=== PATIENT | male | born 1950 | race Caucasian/White ===

== ENCOUNTER 2017-07-27 09:59 | Outpatient (CLI) | payer OTHER, MEDICARE | END 2017-07-27 10:00 | disposition home or self-care (01) | LOC: SC 09:59 | PROVIDERS: ATTEND Internal Medicine Pulmonary Disease | DX: G47.10 Hypersomnia, unspecified (principal); G47.8 Other sleep disorders; R06.83 Snoring | CPT/HCPCS: 99203; 99212 ==

== ENCOUNTER 2019-10-06 08:57 | Outpatient (CLI) | payer MEDICARE, OTHER ==
--- NOTE | 2019-10-07 13:03 | Ultrasound Report ---
Reason: EDEMA OF LOWER EXTREMITY Procedure Date: 10/06/2019 Accession Number: [id number] / [id number] Procedure: US - Duplex Ext Veins Bilateral CPT Code: Final Report FULL RESULT: EXAM: BILATERAL LOWER EXTREMITY VENOUS ULTRASOUND EXAM DATE: 10/06/2019 10:35 AM. CLINICAL HISTORY: Increasing EDEMA OF LOWER EXTREMITY. COMPARISON: None. TECHNIQUE: Real-time sonographic vascular imaging was performed by the pull over machine operator through the lower extremities utilizing both color-flow and Doppler spectral analysis. Multiple contact center representative static images were saved for review. FINDINGS: Right: Common Femoral Vein (CFV): Normal. CFV-GSV Junction: Normal. Profunda Femoral Vein (PFV): Normal. Femoral Vein (FV) Prox: Normal. Femoral Vein (FV) Mid: Normal. Femoral Vein (FV) Dist: Normal. Popliteal Vein: Normal. Posterior Tibial Veins: Normal. Peroneal Veins: Normal. Left: Common Femoral Vein (CFV): Normal. CFV-GSV Junction: Normal. Profunda Femoral Vein (PFV): Normal. Femoral Vein (FV) Prox: Normal. Femoral Vein (FV) Mid: Normal. Femoral Vein (FV) Dist: Normal. Popliteal Vein: Normal. Posterior Tibial Veins: Normal. Peroneal Veins: Normal. Other: None. IMPRESSION: No evidence for deep venous thrombosis bilaterally. RADIA
== END 2019-10-06 08:58 | disposition home or self-care (01) ==
LOC: DI 08:57
PROVIDERS: ATTEND Nurse Practitioner Family
DX: R60.0 Localized edema (principal)
CPT/HCPCS: 93970

== ENCOUNTER 2020-04-11 12:08 | Outpatient (CLI) | payer MEDICARE, OTHER | END 2020-04-11 12:09 | disposition EMS.NT | LOC: EMS 12:08 | PROVIDERS: ATTEND Surgery | DX: M54.5 Low back pain (principal) ==

== ENCOUNTER 2020-10-20 19:15 | Outpatient (CLI) | payer MEDICARE, OTHER | END 2020-10-20 19:16 | disposition EMS.NT | LOC: EMS 19:15 | PROVIDERS: ATTEND Surgery | DX: R29.898 Other symptoms and signs involving the musculoskeletal system (principal) ==

== ENCOUNTER 2021-01-15 15:49 | Outpatient (CLI) | payer MEDICARE, OTHER ==
--- NOTE | 2021-01-15 16:11 | Ultrasound Report ---
PROCEDURE: Pelvic Limited or F/U INDICATIONS: INTRA-ABD AND PELVIC SWELLING, MASS, AND LUMP TECHNIQUE: Real-time transabdominal scanning was performed of the pelvic organs, with image documentation. COMPARISON: None. FINDINGS: There is a spontaneously reducible bowel containing right inguinal hernia with the neck of the hernia measuring 1.7 cm in diameter. No abnormal fluid collections. No suspicious mass lesions. N o adenopathy. IMPRESSION: Spontaneously reducible, bowel-containing right inguinal hernia with neck of the defect measuring 1.7 cm in diameter. Reviewed by: Manjeet Martins MD on 01/15/2021 4:10 PM PDT Approved by: Manjeet Martins MD on 01/15/2021 4:10 PM PDT Station ID: [id number]
== END 2021-01-15 15:50 | disposition home or self-care (01) ==
LOC: DI 15:49
PROVIDERS: ATTEND Nurse Practitioner Family
DX: K40.90 Unilateral inguinal hernia, without obstruction or gangrene, not specified as recurrent (principal)

== ENCOUNTER 2021-01-22 12:32 | Emergency (ER) | payer MEDICARE, OTHER ==
[2021-01-22 13:19] LABS: BASOPHILS % (AUTO) 0.4 %; EOSINOPHILS # (AUTO) 0.1 10^3/uL (0.0-0.7); EOSINOPHILS % (AUTO) 2.3 %; HCT - HEMATOCRIT 37.9 % (42.0-52.0); HGB - HEMOGLOBIN 10.8 g/dL (14.0-18.0); LYMPHOCYTES # (AUTO) 0.8 10^3/uL (1.5-3.5); LYMPHOCYTES % (AUTO) 16.5 %; MEAN CORPUSCULAR HEMOGLOBIN 22.6 pg (27.0-31.0); MEAN CORPUSCULAR HGB CONC 28.5 g/dL (32.0-36.0); MEAN CORPUSCULAR VOLUME 79.3 fL (80.0-94.0); MEAN PLATELET VOLUME 10.4 fL (7.4-11.4); MONOCYTES # (AUTO) 0.5 10^3/uL (0.0-1.0); MONOCYTES % (AUTO) 10.3 %; NEUTROPHILS # (AUTO) 3.4 10^3/uL (1.5-6.6); NEUTROPHILS % (AUTO) 70.3 %; PLT - PLATELET COUNT 233 10^3/uL (130-450); RED BLOOD COUNT 4.78 10^6/uL (4.70-6.10); RED CELL DISTRIBUTION WIDTH 18.5 % (12.0-15.0); WHITE BLOOD COUNT 4.8 x10^3/uL (4.8-10.8)
[2021-01-22 13:33] VITALS: BP 139/66
[2021-01-22 13:33] LABS: ALBUMIN 3.9 g/dL (3.2-5.5); ALBUMIN/GLOBULIN RATIO 1.2 (1.0-2.2); ALKALINE PHOSPHATASE 89 IU/L (42-121); ALT ALANINE AMINOTRANSFERASE < 10 IU/L (10-60); AST ASPARTATE AMINOTRANSFERASE 23 IU/L (10-42); BILIRUBIN,TOTAL 0.6 mg/dL (0.2-1.0); BUN - BLOOD UREA NITROGEN 34 mg/dL (6-20); CALCIUM 9.7 mg/dL (8.5-10.3); CARBON DIOXIDE - CO2 24 mmol/L (21-32); CHLORIDE 104 mmol/L (101-111); GFR - MDRD 74 (>89); GLUCOSE 103 mg/dL (70-100); LIPASE 38 U/L (22-51); SODIUM 138 mmol/L (135-145); TOTAL PROTEIN 7.1 g/dL (6.7-8.2)
[2021-01-22] MEDS ORDERED: HYDROmorphone 1 MG/ML CARPUJECT IVP STA (13:55)
--- NOTE | 2021-01-22 13:56 | ED Physician Documentation ---
History of Present Illness - Stated complaint Stated Complaint: GROIN PX - Chief complaint Chief Complaint: Abd Pain - Additonal information Additional information: 70-year-old male comes to the emergency department with worsening right inguinal pain. He reports that for about 3 weeks he has had a hard lump in his groin he did see his primary care doctor last week and had a pelvic ultrasound completed which did show bowel containing right inguinal hernia. He is scheduled to see Dr. Trevizo on the of this month. However over the last 24 hours he has had an increase in the swelling and pain in the groin. No fevers. He is not anti coagulated. He denies vomiting black or bloody stools. Review of Systems Constitutional: denies: Fever, Chills Eyes: reports: Reviewed and negative Ears: reports: Reviewed and negative Nose: reports: Reviewed and negative Throat: reports: Reviewed and negative Cardiac: reports: Reviewed and negative Respiratory: reports: Reviewed and negative GI: reports: Abdominal Pain : reports: Other (right inguinal hernia). denies: Dysuria, Frequency Skin: reports: Reviewed and negative PD PAST MEDICAL HISTORY - Past Medical History Past Medical History: Yes Cardiovascular: Hypertension Neuro: Parkinson's Musculoskeletal: Other - Past Surgical History Past Surgical History: Yes Ortho: Other - Present Medications Home Medications: Ambulatory Orders Medication Instructions Recorded Confirmed Baclofen [Lioresal] 10 mg PO TID 01/22/21 01/22/21 Carbidopa/Levodopa 25/100 [Sinemet 1 each PO Q4HR 01/22/21 01/22/21 25 mg/100 mg] Cyclobenzaprine [Flexeril] 10 mg PO TID PRN 01/22/21 01/22/21 Escitalopram [Lexapro] 10 mg PO DAILY 01/22/21 01/22/21 HYDROcod/ACETAM 5/325 [Lawrence 5/325] 1 tab PO BID PRN #10 tablet 01/22/21 Lisinopril [Zestril] 20 mg PO DAILY 01/22/21 01/22/21 Pramipexole Di-HCl [Mirapex ER] 0.75 mg PO DAILY 01/22/21 01/22/21 Pravastatin Sodium [Pravachol] 20 mg PO DAILY 01/22/21 01/22/21 polyethylene glycoL 3350 [Miralax] 17 gm PO DAILY PRN #1 bottle 01/22/21 - Allergies Allergies/Adverse Reactions: Allergies Allergy/AdvReac Type Severity Reaction Status Date / Time Sulfa (Sulfonamide Allergy Rash Verified 01/22/21 12:50 Antibiotics) - Social History Does the pt smoke?: No Smoking Status: Never smoker Does the pt drink ETOH?: No Does the pt have substance abuse?: No - Immunizations Immunizations are current?: Yes PD ED PE EXPANDED - General General: Alert, No acute distress - Cardiac Cardiac: Regular Rate, Regular Rhythm, Radial strong equal, Femoral strong equal, Pedal strong equal, Cap refill < 2 sec - Respiratory Respiratory: Clear to ausultation aram. No: Distress, Labored - Abdomen Abdomen: Normal Bowel sounds. No: Tender to palpation - Male Male : Circumcised, Tenderness, Other (Right inguinal hernia; unable to be reduced ? incarcerated) - Neuro Neuro: Alert and Oriented X 3, CNII-XII intact Results - Vitals Vitals: Vital Signs - 24 hr 01/22/21 01/22/21 12:51 13:27 Temperature 36.5 C 36.5 C Heart Rate 81 81 Respiratory 18 18 Rate Blood Pressure 129/66 139/66 H O2 Saturation 95 95 Oxygen O2 Source Room air - Labs Labs: Laboratory Tests 01/22/21 01/22/21 13:12 13:12 WBC 4.8 RBC 4.78 Hgb 10.8 L Hct 37.9 L MCV 79.3 L MCH 22.6 L MCHC 28.5 L RDW 18.5 H Plt Count 233 MPV 10.4 Neut # (Auto) 3.4 Lymph # (Auto) 0.8 L Caswell # (Auto) 0.5 Eos # (Auto) 0.1 Baso # (Auto) 0.0 Absolute Nucleated RBC 0.00 Nucleated RBC % 0.0 Sodium 138 Potassium 4.0 Chloride 104 Carbon Dioxide 24 Anion Gap 10.0 BUN 34 H Creatinine 1.0 Estimated GFR (MDRD) 74 L Glucose 103 H Calcium 9.7 Total Bilirubin 0.6 AST 23 ALT < 10 L Alkaline Phosphatase 89 Total Protein 7.1 Albumin 3.9 Globulin 3.2 Albumin/Globulin Ratio 1.2 Lipase 38 - Rads (name of study) pelvic US Radiology: Final report received (Reducible right inguinal hernia.) PD MEDICAL DECISION MAKING - ED course Complexity details: reviewed results, re-evaluated patient, considered differential, d/w patient, d/w marketing sales consultant (Joseline) ED course: 70-year-old male with a known right inguinal hernia comes to the emergency department for evaluation of increasing right groin pain. On exam he did have a palpable inguinal and hernia that I was only able to partially reduce. Therefore I did order a pelvic ultrasound. However at the time the ultrasound was in the room the hernia had fully reduced. Screening labs showed no leukocytosis or fever. This case was briefly discussed with on-call surgeon Dr. Trevizo. He is stable for discharge home and to continue follow-up with her in office next week. She recommends no heavy lifting straining or bearing down. I will write a prescription for a limited amount of hydrocodone as well as MiraLAX. Emergent return precautions were discussed for concerns of incarceration and strangulation. Departure - Departure Disposition: 01 Home, Self Care Clinical Impression: Right inguinal hernia Condition: Stable Record reviewed to determine appropriate education?: Yes Instructions: ED Hernia Inguinal Follow-Up: Davis Trevizo MD [Provider Admit Priv/Credential] - Prescriptions: polyethylene glycoL 3350 [Miralax] 17 gm PO DAILY PRN #1 bottle PRN Reason: Constipation HYDROcod/ACETAM 5/325 [Lawrence 5/325] 1 tab PO BID PRN #10 tablet PRN Reason: Pain Comments: Walt you are seen in the emergency department today for right inguinal hernia. We were able to reduce it. You to have an appointment with Dr. Rodriguez next week on the . Do not miss this appointment. Over the next week it is important that you avoid any straining, lifting heavier than 2 pounds, squatting or bearing down. All of these actions can cause the hernia to come out. If at any point the hernia comes out and you are not able to get it to go back and as we were then please return to the ER for a second look. I have prescribed a limited amount of hydrocodone for pain that is to be used very sparingly. I have also prescribed some MiraLAX to help make sure that you do not have constipation.
--- NOTE | 2021-01-22 14:44 | Ultrasound Report ---
PROCEDURE: Pelvic Male INDICATIONS: ? incarcerated inguinal hernia TECHNIQUE: Interrogation of right inguinal region with high megahertz linear transducer with and with out Valsalva COMPARISON: 01/15/2021 FINDINGS: Again noted is a reducible hernia containing bowel. The hernia defect measures approximately 1.7 cm i n diameter. IMPRESSION: Reducible right inguinal hernia containing bowel. Reviewed by: Dae Whitley MD on 01/22/2021 2:42 PM PDT Approved by: Dae Whitley MD on 01/22/2021 2:42 PM PDT Station ID: [id number]
== END 2021-01-22 14:59 | disposition home or self-care (01) ==
LOC: ED 12:32
DX: K44.9 Diaphragmatic hernia without obstruction or gangrene (principal); I10 Essential (primary) hypertension
CPT/HCPCS: 36415; 76857; 80053; 83690; 85025; 96374; 99284; J1170

== ENCOUNTER 2021-02-08 14:05 | Outpatient (CLI) | payer MEDICARE | END 2021-02-08 14:06 | disposition home or self-care (01) | LOC: COV 14:05 | PROVIDERS: ATTEND Surgery | DX: Z01.812 Encounter for preprocedural laboratory examination (principal); K40.90 Unilateral inguinal hernia, without obstruction or gangrene, not specified as recurrent; Z20.822 Contact with and (suspected) exposure to COVID-19 ==

== ENCOUNTER 2021-02-11 07:58 | Day surgery (SDC) | payer MEDICARE, OTHER ==
[~2021-02-11 07:58] MED LIST: ceFAZolin 2 GM/50 ML 2 GM/50 ML BAG IV ONE
[2021-02-11] MEDS ORDERED: fentaNYL 100 MCG/2 ML VIAL IVP PRN (08:28)
[2021-02-11] MEDS ORDERED: MORPHINE 2 MG/ML CARPUJECT IVP PRN (08:28)
[2021-02-11] MEDS ORDERED: ONDANSETRON 4 MG/2 ML VIAL IVP PRN ×2 (08:28→10:16)
[2021-02-11] MEDS ORDERED: ATROPINE ABBOJECT 1 MG/10 ML SYRINGE IVP PRN (08:28)
[2021-02-11] MEDS ORDERED: HYDROmorphone 0.5 MG/0.5 ML SYRINGE IVP PRN (08:28)
[2021-02-11] MEDS ORDERED: NALOXONE 0.4 MG/ML VIAL IVP PRN (08:28)
[2021-02-11] MEDS ORDERED: ePHEDrine 50 MG/ML VIAL IVP PRN (08:28)
[2021-02-11] MEDS ORDERED: LACTATED RINGERS 1,000 ML IV ONE ×2 (08:53→10:23)
[2021-02-11] MEDS ORDERED: LACTATED RINGERS 1,000 ML IV SCH (09:00)
--- NOTE | 2021-02-11 09:00 | ANESTHESIA ---
Pre-Anesthesia VS, & Labs - Diagnosis r inguinal hernia - Procedure r inguinal hernia repair Vital Signs: Temp Pulse Resp BP Pulse Ox 36.2 C L 70 16 111/59 L 99 02/11/21 08:18 02/11/21 08:18 02/11/21 08:18 02/11/21 08:18 02/11/21 08:18 Height: 6 ft Weight (kg): 214 kg Body Mass Index: 64.0 BMI Classification: Morbidly Obese - NPO >8 hours Home Medications and Allergies Home Medications: Ambulatory Orders Aspirin EC [Ecotrin] 81 mg PO DAILY 02/07/21 Carbidopa/Levodopa 25/100 [Sinemet 25 mg/100 mg] 1 tab PO ONCE 02/07/21 Cyclobenzaprine HCl 5 - 10 mg PO Q8HR PRN 02/07/21 Lisinopril [Zestril] 20 mg PO DAILY 02/07/21 Metoprolol Tartrate [Lopressor] 25 mg PO BID 02/07/21 Pramipexole Di-HCl [Mirapex] 0.75 mg PO ONCE 02/07/21 Pravastatin Sodium [Pravachol] 20 mg PO DAILY 02/07/21 Active Medications Atropine Sulfate (Atropine Abboject 1 Mg/10 Ml Syringe) 0.5 mg IVP Q5M PRN PRN Reason: Bradycardia Stop: 02/12/21 08:28 Ephedrine Sulfate (Ephedrine 50 Mg/Ml Vial) 10 mg IVP Q5M PRN PRN Reason: HYPOTENSION Stop: 02/12/21 08:28 Fentanyl (Fentanyl 100 Mcg/2 Ml Vial) 25 - 50 mcg IVP Q5M PRN PRN Reason: BREAKTHROUGH PAIN (2nd Choice) Stop: 02/12/21 08:28 Hydromorphone HCl (Hydromorphone 0.5 Mg/0.5 Ml Syringe) 0.2 - 0.6 mg IVP Q5M PRN PRN Reason: PAIN (First Choice) Stop: 02/12/21 08:28 Lactated Ringer's (Lr) 1,000 mls @ 100 mls/hr IV .Q10H BALA Stop: 02/11/21 18:59 Morphine Sulfate (Morphine 2 Mg/Ml Carpuject) 2 - 4 mg IVP Q5M PRN PRN Reason: PAIN (3rd Choice) Stop: 02/12/21 08:28 Naloxone HCl (Naloxone 0.4 Mg/Ml Vial) 0.1 mg IVP Q2M PRN PRN Reason: RESP RATE <8 Stop: 02/12/21 08:28 Ondansetron HCl (Ondansetron 4 Mg/2 Ml Vial) 4 mg IVP ONCE PRN PRN Reason: N/V (First Choice) Stop: 02/12/21 08:28 Baclofen [Lioresal] 10 mg PO TID 01/22/21 Carbidopa/Levodopa 25/100 [Sinemet 25 mg/100 mg] 1 each PO Q4HR 01/22/21 Cyclobenzaprine [Flexeril] 10 mg PO TID PRN 01/22/21 Escitalopram [Lexapro] 10 mg PO DAILY 01/22/21 Lisinopril [Zestril] 20 mg PO DAILY 01/22/21 Pramipexole Di-HCl [Mirapex ER] 0.75 mg PO DAILY 01/22/21 Pravastatin Sodium [Pravachol] 20 mg PO DAILY 01/22/21 Aspirin EC [Ecotrin] 81 mg PO DAILY 02/07/21 Carbidopa/Levodopa 25/100 [Sinemet 25 mg/100 mg] 1 tab PO ONCE 02/07/21 Cyclobenzaprine HCl 5 - 10 mg PO Q8HR PRN 02/07/21 Lisinopril [Zestril] 20 mg PO DAILY 02/07/21 Metoprolol Tartrate [Lopressor] 25 mg PO BID 02/07/21 Pramipexole Di-HCl [Mirapex] 0.75 mg PO ONCE 02/07/21 Pravastatin Sodium [Pravachol] 20 mg PO DAILY 02/07/21 Allergies/Adverse Reactions: Allergies Allergy/AdvReac Type Severity Reaction Status Date / Time Sulfa (Sulfonamide Allergy Rash Verified 02/08/21 08:06 Antibiotics) Anes History & Medical History - Anesthetic History Anesthesia Complications: reports: No previous complications Family history of Anesthesia Complications: Denies Family history of Malignant Hyperthermia: Denies - Medical History Cardiovascular: reports: High cholesterol, Hypertension, Murmur Pulmonary: reports: Shortness of breath Gastrointestinal: reports: None Urinary: reports: Other Neuro: reports: Parkinson's Musculoskeletal: reports: Osteoarthritis, Other Endocrine/Autoimmune: reports: None Skin: reports: None Smoking Status: Never smoker - Surgical History General: reports: Colonoscopy Eyes Ears Nose Throat (EENT): reports: Tonsil/Adenoidectomy Cardiothoracic: reports: Other Orthopedic: reports: Shoulder arthroplasty, Spine surgery, Other Exam General: Alert, Oriented x3, Cooperative Dental: WNL Mouth Openin Fingerbreadth Neck Mobility: Normal Mallampati classification: II Thyromental Distance: 4-6 cm Respiratory: Lungs clear Cardiovascular: Regular rate Abdomen: Normal bowel sounds Extremities: No clubbing Mental/Cognitive Status: Alert/Oriented X3 Cognitive Status: Within normal limits Plan Anesthesia Type: General, Total IV Consent for Procedure(s) Verified and Reviewed: Yes Code Status: Attempt Resuscitation ASA classification: 3-Severe systemic disease Is this case an emergency?: No
[2021-02-11] MEDS ORDERED: LIDOCAINE 2%-EPI 1:100000 20 ML MDV ONE (09:18)
[2021-02-11] MEDS ORDERED: ceFAZolin 1 GM VIAL ONE (09:18)
[2021-02-11] MEDS ORDERED: BUPIVACAINE 0.5% PF 30 ML VIAL ONE (09:18)
[2021-02-11] MEDS ORDERED: PROPOFOL 500 MG/50 ML 500 MG/50 ML VIAL ONE (09:22)
[2021-02-11] MEDS ORDERED: MIDAZOLAM 2 MG/2 ML VIAL ONE (09:27)
[2021-02-11] MEDS ORDERED: fentaNYL 100 MCG/2 ML VIAL ONE (09:27)
[2021-02-11] MEDS ORDERED: ceFAZolin 1 GM VIAL IR ONE (09:46)
[2021-02-11] MEDS ORDERED: BUPIVACAINE 0.5% PF 30 ML VIAL INFIL ONE ×2 (09:47→10:13)
[2021-02-11] MEDS ORDERED: LIDOCAINE 2%-EPI 1:100000 20 ML MDV SUBQ ONE ×2 (09:48)
[2021-02-11] MEDS ORDERED: IBUPROFEN 600 MG TABLET PO PRN (10:16)
[2021-02-11] MEDS ORDERED: oxyCODONE 5 MG TABLET PO PRN (10:16)
[2021-02-11] MEDS ORDERED: ACETAMINOPHEN 325 MG TABLET PO PRN (10:16)
[2021-02-11] MEDS ORDERED: CYCLOBENZAPRINE 10 MG TABLET PO PRN (10:20)
--- NOTE | 2021-02-11 10:25 | OPERATIVE REPORT ---
Operative Report - General Procedure Date: 02/11/21 Planned Procedure: Right inguinal hernia repair Pre-Op Diagnosis: Right inguinal hernia Procedure Performed: Right inguinal hernia repair Post Op Diagnosis: Right inguinal hernia-direct - Procedure Note Primary Surgeon: Joseline Anesthesia Provider: MARTINEZ Briseno Anesthesia Technique: Local, MAC Pathology: None Estimated Blood Loss (mL): 5 Indications: Symptomatic right inguinal hernia Findings: Right inguinal hernia in the direct space Complications: None apparent - Other Other Information/Narrative: After obtaining informed consent, the patient is brought to the operating room and placed in the supine position on the operating table. Following successful induction of general endotracheal anesthesia, appropriate padding of all bony prominences, and placement of appropriate monitors, the abdomen was prepped and draped in the standard surgical fashion. A timeout was held per scope protocol. All elements of the surgical safety checklist were followed before, during, and after the procedure. We began the procedure by infiltrating a mixture of local anesthetics medial to the anterior superior iliac spine on the right. This was done to create an ileal inguinal nerve block. We then selected a site for an incision in the right lower quadrant just superior and lateral to the right pubic tubercle. This area was anesthetized with additional local anesthetic and an incision was created here.The incision was carried down through the skin and subcutaneous tissue to reveal the fascia of the external oblique aponeurosis. Retractor was placed and the aponeurosis was opened in direction of its fibers. The ilioinguinal nerve was immediately identified. We continued by identifying the spermatic cord and gently encircling it with a Crowheart drain. The hernia sac was carefully dissected free from the cord structures and was noted to be in the inferior lateral position. It consisted primarily of a large lipoma and a direct inguinal hernia. The hernia contents were placed back into the abdominal cavity. We elected to repair the hernia with a large Prolene hernia system mesh implant. This was dipped in Ancef containing solution and then deployed into the defect. The posterior leaflet was straightened and flattened in the preperitoneal space. The anterior leaflet was then nicked medially to provide a place for the spermatic cord and then closed with a Vicryl suture. The more inferior aspect was then sewn to Juventino's ligament medially. Laterally it was tucked under the external beak aponeurosis. The wound was checked for hemostasis and irrigated with warm saline solution. It was aspirated free of all fluid and particulate matter. The extra oblique aponeurosis was then closed with a running locking Vicryl suture Lamberto's fascia was closed with Vicryl suture and Monocryl stitches were placed in the skin. All sponge, needle, and instrument counts were correct at the conclusion of the case. The patient was allowed awaken from anesthesia without difficulty and taken to the postanesthesia care unit in good condition.
[2021-02-11] MEDS ORDERED: PRAMIPEXOLE DI HCL 0.75 MG PO SCH (10:30)
[2021-02-11] MEDS ORDERED: polyethylene glycoL 3350 17 GM PACKET PO PRN (11:01)
--- NOTE | 2021-02-11 12:23 | PHARMACY PROGRESS NOTE ---
- Best Possible Medication History Admit Date and Time: Processed by: Nursing Medication History completed: Yes Secondary Source(s): Prescription bottles RN updated medication list. Pharmacy reviewed prescription bottles brought in by patient to confirm strengths/doses. Per RN list update, patient last took baclofen yesterday; however, unable to confirm with fill history, and prescription bottle for baclofen was not included in medications brought to pharmacy. As the person ultimately responsible for medication therapy, providers are able to order a medication from an existing home medication list in [facility] via the "Reconcile Routine" prior to Confirmation of that medication by application support technician. Such practice is discouraged except when the physician, in their clinical judgment, deems that a medical need exists for a medication without regard to previous use.
[2021-02-11] MEDS: METOPROLOL TARTRATE 25 MG TABLET PO SCH ×2 (12:35→21:11)
[2021-02-11] MEDS: lisinopriL 20 MG TABLET PO SCH (12:35)
[2021-02-11] MEDS: ESCITALOPRAM 10 MG TABLET PO SCH (12:35)
[2021-02-11] MEDS: CARBIDOPA/LEVODOPA 25 MG/100 MG TABLET PO SCH ×4 (12:35→21:11)
--- NOTE | 2021-02-11 12:40 | ANESTHESIA POST OP EVALUATION ---
Anesthesia Post Eval - Post Anesthesia Eval Vitals: Last Vital Signs Temp 36.5 C 02/11/21 12:00 Pulse 63 02/11/21 12:00 Resp 20 02/11/21 12:00 BP 170/65 H 02/11/21 12:00 Pulse Ox 98 02/11/21 12:00 CV Function Including HR & BP: Stable Pain Control: Satisfactory Nausea & Vomiting: Negative Mental Status: Baseline Respiratory Status: Airway Patent Hydration Status: Satisfactory Anesthesia Complications: None
[2021-02-11] MEDS: PRAMIPEXOLE 0.25 MG TABLET PO SCH ×4 (12:41→21:12)
[2021-02-11] MEDS ORDERED: SODIUM CHLORIDE 0.9% 500 ML IV ONE (14:17)
[2021-02-11] MEDS: BACLOFEN 10 MG TABLET PO SCH ×2 (14:27→21:12)
[2021-02-11] MEDS ORDERED: PRAVASTATIN 10 MG TABLET PO SCH (21:00)
[2021-02-12] MEDS: PRAMIPEXOLE 0.25 MG TABLET PO SCH ×4 (00:05→08:17)
[2021-02-12] MEDS: CARBIDOPA/LEVODOPA 25 MG/100 MG TABLET PO SCH ×4 (00:05→08:18)
[2021-02-12] MEDS ORDERED: PRAMIPEXOLE 0.25 MG TABLET PO ONE (03:29)
[2021-02-12] MEDS: BACLOFEN 10 MG TABLET PO SCH (06:18)
[2021-02-12] MEDS: ESCITALOPRAM 10 MG TABLET PO SCH (08:18)
[2021-02-12] MEDS: METOPROLOL TARTRATE 25 MG TABLET PO SCH (08:21)
[2021-02-12] MEDS: lisinopriL 20 MG TABLET PO SCH (08:21)
[2021-02-12 08:28] VITALS: BP 104/63
[2021-02-12] MEDS ORDERED: ASPIRIN EC 81 MG TABLET PO SCH (09:00)
--- NOTE | 2021-02-12 09:36 | PROVIDER PROGRESS NOTE ---
Subjective - General Procedure Date: 02/11/21 Post Op Days: 1 Procedure Performed: Inguinal hernia repair - Review of Systems Wound/Incisions: positive: Healing well General: positive: No symptoms HEENT: positive: No symptoms Pulmonary: positive: No symptoms Cardiovascular: positive: No symptoms Genitourinary: positive: No symptoms Musculoskeletal: positive: No symptoms Skin: positive: No symptoms All Other Systems: positive: Reviewed and negative Objective - Patient Data Reviewed Vital Signs: Yes Vital Signs: Vital Signs x48h Temp Pulse Resp BP Pulse Ox 02/12/21 08:21 104/63 02/12/21 07:37 36.7 C 76 18 131/48 H 97 02/12/21 03:40 36.7 C 69 16 135/78 H 98 Weight: Weight 02/10/21 02/11/21 02/12/21 23:59 23:59 23:59 Weight (kg) 214 kg Intake & Output: Intake and Output Totals x24h 02/10/21 02/11/21 02/12/21 23:59 23:59 23:59 Intake Total 2204 240 Output Total 530 965 Balance 1674 -725 - Current Medications Current Medications: Current Medications Generic Name Dose Route Start Last Admin Trade Name Freq PRN Reason Stop Dose Admin Acetaminophen 650 mg 02/11/21 10:16 02/12/21 07:43 Acetaminophen 325 Mg Tablet PO 650 mg Q6H PRN Administration Pain or Fever > 38C (100.4F) Aspirin 81 mg 02/12/21 09:00 02/12/21 08:17 Aspirin Ec 81 Mg Tablet PO 81 mg DAILY BALA Administration Baclofen 10 mg 02/11/21 14:00 02/12/21 06:18 Baclofen 10 Mg Tablet PO 10 mg TID BALA Administration Carbidopa/Levodopa 2 tab 02/11/21 12:00 02/12/21 08:18 Carbidopa/Levodopa 25 Mg/100 Mg Tablet PO 2 tab Q3H BALA Administration Escitalopram Oxalate 10 mg 02/11/21 11:00 02/12/21 08:18 Escitalopram 10 Mg Tablet PO 10 mg DAILY BALA Administration Ibuprofen 600 mg 02/11/21 10:16 02/11/21 15:33 Ibuprofen 600 Mg Tablet PO 600 mg Q6HR PRN Administration PAIN Lisinopril 20 mg 02/11/21 11:00 02/12/21 08:21 Lisinopril 20 Mg Tablet PO 20 mg DAILY BALA Administration Metoprolol Tartrate 25 mg 02/11/21 11:00 02/12/21 08:21 Metoprolol Tartrate 25 Mg Tablet PO 25 mg BID BALA Administration Oxycodone HCl 5 mg 02/11/21 10:16 02/12/21 07:43 Oxycodone 5 Mg Tablet PO 5 mg Q4HR PRN Administration PAIN Pramipexole Dihydrochloride 0.75 mg 02/11/21 12:00 02/12/21 08:17 Pramipexole 0.25 Mg Tablet PO 0.75 mg Q3H BALA Administration Pravastatin Sodium 20 mg 02/11/21 21:00 02/11/21 21:12 Pravastatin 10 Mg Tablet PO 20 mg QPM BALA Administration - Physical Exam Wound/Incisions: positive: Healing well, Other (appropriately tender) General Appearance: positive: No acute distress Eyes Bilateral: positive: Normal inspection ENT: positive: ENT inspection nml Neck: positive: Nml inspection Respiratory: positive: Chest non-tender Cardiovascular: positive: Regular rate & rhythm Neurologic/Psychiatric: positive: Oriented x3 Impression/Plan - Problem List Problem List: Looking very well this morning. Ate breakfast and able to shower and dress himself with no assistance. Will discharge to his home. Follow up with me in 2 weeks.
== END 2021-02-12 11:20 | disposition home or self-care (01) ==
LOC: SDS 07:58 → MERGE 09:00 → MS2 10:42 → SDS 02-12 11:20
PROVIDERS: ATTEND Surgery
DX: K40.90 Unilateral inguinal hernia, without obstruction or gangrene, not specified as recurrent (principal); G20 Parkinson's disease; I10 Essential (primary) hypertension; I35.0 Nonrheumatic aortic (valve) stenosis; I25.119 Atherosclerotic heart disease of native coronary artery with unspecified angina pectoris; E78.5 Hyperlipidemia, unspecified; K21.9 Gastro-esophageal reflux disease without esophagitis; F39 Unspecified mood [affective] disorder; M54.30 Sciatica, unspecified side; F17.200 Nicotine dependence, unspecified, uncomplicated; E66.9 Obesity, unspecified; Z68.29 Body mass index [BMI] 29.0-29.9, adult; R01.1 Cardiac murmur, unspecified; Z79.82 Long term (current) use of aspirin; Z79.899 Other long term (current) drug therapy; R39.15 Urgency of urination
CPT/HCPCS: 49505; A9270; C1781; J0690; J7120

== ENCOUNTER 2021-02-22 10:53 | Outpatient (CLI) | payer MEDICARE, OTHER | END 2021-02-22 10:54 | disposition critical access hospital (66) | LOC: EMS 10:53 | DX: R29.898 Other symptoms and signs involving the musculoskeletal system (principal) | CPT/HCPCS: A0425; A0429 ==

== ENCOUNTER 2021-02-22 11:25 | Emergency (ER) | payer MEDICARE, OTHER ==
--- OUTSIDE RECORDS SUMMARY | 2021-02-22 11:52 | EXTERNAL MEDICAL SUMMARY RPT | Continuity of Care Document ---
:1950 Demographics Phone Unavailable Preferred Language Unknown Marital Status Unknown Scientology Affiliation Unknown Race Unknown Ethnic Group Unknown Author Organization [facility] Address [address] [id number] Phone Social History date description facility [id number]
--- NOTE | 2021-02-22 13:39 | ED Physician Documentation ---
History of Present Illness - Stated complaint Stated Complaint: R LEG WEAKNESS - Chief complaint Chief Complaint: Ext Problem - History obtained from History obtained from: Patient - Additonal information Additional information: 70-year-old man with past medical history of Parkinson's disease presents with inability to get up from sitting in a chair today after being in the same position for a prolonged period of time and having his R leg fall asleep. He states that he is depressed, his dog has cancer, and he is going through a divorce and his was unwilling to lift him up or call a neighbor for assistance. She called 911 and they encouraged him to come into the emergency department. Of note, patient had a hernia repair surgery recently to the right groin. He has had no issues with this and it is healing well. Patient is otherwise asymptomatic. Denies Si/HI/AVH. Review of Systems Ten Systems: 10 systems reviewed and negative PD PAST MEDICAL HISTORY - Past Medical History Cardiovascular: High cholesterol, Hypertension, Murmur Respiratory: Shortness of breath Neuro: Parkinson's Endocrine/Autoimmune: None GI: None : Other HEENT: Chronic hearing loss, Chronic vision loss Psych: None Musculoskeletal: Osteoarthritis, Other Derm: None - Past Surgical History Past Surgical History: Yes General: Colonoscopy Ortho: Shoulder arthroplasty, Spine surgery, Other Cardiovascular: Other HEENT: Tonsil/Adenoidectomy - Present Medications Home Medications: Ambulatory Orders Medication Instructions Recorded Confirmed Baclofen [Lioresal] 10 mg PO TID 01/22/21 02/22/21 Escitalopram [Lexapro] 10 mg PO DAILY 01/22/21 02/22/21 Pravastatin Sodium [Pravachol] 20 mg PO DAILY 01/22/21 02/22/21 polyethylene glycoL 3350 [Miralax] 17 gm PO DAILY PRN #1 bottle 01/22/21 02/22/21 Aspirin EC [Ecotrin] 81 mg PO DAILY 02/07/21 02/22/21 Carbidopa/Levodopa 25/100 [Sinemet 2 tab PO .7XD 02/07/21 02/22/21 25 mg/100 mg] Cyclobenzaprine HCl 5 - 10 mg PO Q8HR PRN 02/07/21 02/22/21 Lisinopril [Zestril] 20 mg PO DAILY 02/07/21 02/22/21 Metoprolol Tartrate [Lopressor] 25 mg PO BID 02/07/21 02/22/21 Pramipexole Di-HCl [Mirapex] 0.75 mg PO .6XD 02/07/21 02/22/21 Docusate Sodium [Dulcolax Stool 100 mg PO PRN PRN 02/11/21 02/22/21 Softener] Ferrous Sulfate 325 mg PO DAILY 02/11/21 02/22/21 Multivit-Min/FA/Lycopen/Lutein 1 tab PO DAILY 02/11/21 02/22/21 [Centrum Silver Men Tablet] oxyCODONE [Roxicodone] 5 mg PO Q4H PRN #14 tablet 02/12/21 02/22/21 - Allergies Allergies/Adverse Reactions: Allergies Allergy/AdvReac Type Severity Reaction Status Date / Time Sulfa (Sulfonamide Allergy Rash Verified 02/22/21 11:38 Antibiotics) - Social History Does the pt smoke?: No Smoking Status: Former smoker Does the pt drink ETOH?: No Does the pt have substance abuse?: Yes Substance Use and Type: Marijuana - Immunizations Immunizations are current?: Yes PD ED PE NORMAL - Vitals Vital signs reviewed: Yes - General General: Alert and oriented X 3, No acute distress, Well developed/nourished - HEENT HEENT: Atraumatic, PERRL, EOMI - Neck Neck: Supple, no meningeal sign - Cardiac Cardiac: RRR - Respiratory Respiratory: No respiratory distress, Clear bilaterally - Abdomen Abdomen: Non tender, Non distended, Other (R inguinal hernia site clean and healing well) - Derm Derm: Normal color - Extremities Extremities: No deformity - Neuro Neuro: Alert and oriented X 3, Other (ambulatory with a cane. mild resting tremor) - Psych Psych: Normal mood, Normal affect Results - Vitals Vitals: Vital Signs - 24 hr 02/22/21 11:27 Temperature 98.0 C H Heart Rate 56 L Respiratory 16 Rate Blood Pressure 161/78 H O2 Saturation 99 Oxygen O2 Source Room air PD MEDICAL DECISION MAKING - ED course ED course: 70-year-old man presents with weakness. He is ambulatory with a cane here and asymptomatic, requesting to go home. Advised him to call left assist from our firefighters on [facility] if he needs help. Strict return precautions given. Patient will follow up with his primary doctor Departure - Departure Disposition: Home, Self Care Clinical Impression: Right leg weakness, Parkinsons disease Condition: Good Instructions: ED Screening Exam Medical Nonurgent Comments: You were seen in the emergency department for leg weakness. Make sure to call for a lift assist from the fire department if you are in [facility]! Also make sure that you get lots of rest and do not lift large burdens on your own. Return to the emergency department if you experience any new or worsening symptoms or have other concerns. Follow-up with your primary doctor.
[2021-02-22 13:44] VITALS: BP 124/78
== END 2021-02-22 13:44 | disposition home or self-care (01) ==
LOC: EDUNIT# → ED 11:25
DX: R29.898 Other symptoms and signs involving the musculoskeletal system (principal); R53.1 Weakness; G20 Parkinson's disease; F32.9 Major depressive disorder, single episode, unspecified; I10 Essential (primary) hypertension; Z79.82 Long term (current) use of aspirin; Z87.891 Personal history of nicotine dependence; Z98.890 Other specified postprocedural states
CPT/HCPCS: 99281; 99283

== ENCOUNTER 2021-03-04 19:38 | Emergency (ER) | payer MEDICARE, OTHER ==
--- NOTE | 2021-03-04 22:00 | ED Physician Documentation ---
PD HPI HEAD INJURY - Stated complaint Stated Complaint: FALL, HEAD INJURY - Chief complaint Chief Complaint: Trauma Hd/Nk - History obtained from History obtained from: Patient - History of Present Illness Mechanism of head injury: Fell (he states he tripped and fell at a small step on another person's deck, falling forward and struck knees and eyebrow area. Able to walk and knees not hurting now. Lac left eyebrow area. No LOC and no headache.) Where head injury occurred: Other (friends house) Timing - onset: Today (shortly CALL TAKER) Location of injury: Front Associated symptoms: No: LOC, AMS Contributing factors: No: Anticoagulated, Intoxicated Similar symptoms before: Has not had sx before (some wobbly walking with cane due to Parkinsons.) Recently seen: Not recently seen Review of Systems Constitutional: denies: Fever Nose: denies: Rhinorrhea / runny nose, Congestion Throat: denies: Sore throat Cardiac: denies: Chest pain / pressure Respiratory: denies: Cough GI: denies: Abdominal Pain Neurologic: denies: Focal weakness, Numbness, Difficulty speaking, Near syncope, Altered mental status, Headache, LOC PD PAST MEDICAL HISTORY - Past Medical History Cardiovascular: High cholesterol, Hypertension, Murmur Respiratory: Shortness of breath Neuro: Parkinson's Endocrine/Autoimmune: None GI: None : Other HEENT: Chronic hearing loss, Chronic vision loss Psych: None Musculoskeletal: Osteoarthritis, Other Derm: None - Past Surgical History Past Surgical History: Yes General: Colonoscopy Ortho: Shoulder arthroplasty, Spine surgery, Other Cardiovascular: Other HEENT: Tonsil/Adenoidectomy - Present Medications Home Medications: Ambulatory Orders Medication Instructions Recorded Confirmed Baclofen [Lioresal] 10 mg PO TID 01/22/21 02/22/21 Escitalopram [Lexapro] 10 mg PO DAILY 01/22/21 02/22/21 Pravastatin Sodium [Pravachol] 20 mg PO DAILY 01/22/21 02/22/21 polyethylene glycoL 3350 [Miralax] 17 gm PO DAILY PRN #1 bottle 01/22/21 1 Aspirin EC [Ecotrin] 81 mg PO DAILY 02/07/21 02/22/21 Carbidopa/Levodopa 25/100 [Sinemet 2 tab PO .7XD 02/07/21 02/22/21 25 mg/100 mg] Cyclobenzaprine HCl 5 - 10 mg PO Q8HR PRN 02/07/21 02/22/21 Lisinopril [Zestril] 20 mg PO DAILY 02/07/21 02/22/21 Metoprolol Tartrate [Lopressor] 25 mg PO BID 02/07/21 02/22/21 Pramipexole Di-HCl [Mirapex] 0.75 mg PO .6XD 02/07/21 02/22/21 Docusate Sodium [Dulcolax Stool 100 mg PO PRN PRN 02/11/21 02/22/21 Softener] Ferrous Sulfate 325 mg PO DAILY 02/11/21 02/22/21 Multivit-Min/FA/Lycopen/Lutein 1 tab PO DAILY 02/11/21 02/22/21 [Centrum Silver Men Tablet] oxyCODONE [Roxicodone] 5 mg PO Q4H PRN #14 tablet 02/12/21 02/22/21 - Allergies Allergies/Adverse Reactions: Allergies Allergy/AdvReac Type Severity Reaction Status Date / Time Sulfa (Sulfonamide Allergy Rash Verified 02/22/21 11:38 Antibiotics) - Social History Does the pt smoke?: No Smoking Status: Former smoker Does the pt drink ETOH?: No Does the pt have substance abuse?: Yes - Immunizations Immunizations are current?: Yes PD ED PE NORMAL - Vitals Vital signs reviewed: Yes - General General: Alert and oriented X 3, No acute distress, Well developed/nourished - HEENT HEENT: PERRL, EOMI, Other (left lateral eyebrow area with small 1.5 cm laceration without bleeding nor FB. 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 No: FB identified Skin layer closure: Nylon, Running, Size #-0 - enter number (6), Sutures - enter # (8) PD MEDICAL DECISION MAKING - ED course Complexity details: considered differential, d/w patient Departure - Departure Disposition: 01 Home, Self Care Clinical Impression: Fall from slip, trip, or stumble Qualifiers: Encounter type: initial encounter Qualified Code(s): W01.0XXA - Fall on same level from slipping, tripping and stumbling without subsequent striking against object, initial encounter Eyebrow laceration Qualifiers: Encounter type: initial encounter Laterality: left Qualified Code(s): S01.112A - Laceration without foreign body of left eyelid and periocular area, initial encounter Condition: Stable Record reviewed to determine appropriate education?: Yes Instructions: ED Laceration Facial Sutr Tape Follow-Up: RONAK ADNRADE ARNP [Primary Care Provider] - Comments: Suture care instructions it is okay to wash and shower. Clean off the wound twice a day with soap and water, or peroxide and water. Apply some antibiotic ointment to it to keep it moist. Also to watch for signs of infection such as purulence, redness or increasing pain. Return to your primary care or the ER at the specified time for suture removal. Suture removal 7 or 8 days. Tylenol if needed for pains. Return if general headache, blurred vision, acting unusually, persistent nausea or vomiting, or ot her concussive symptoms. You did receive a tetanus booster here today (TDaP). Discharge Date/Time: 03/04/21 22:33
[2021-03-04] MEDS ORDERED: TETANUS/DIPHTHERIA/PERTUSSIS 0.5 ML SYRINGE IM ONE (22:09)
[2021-03-04] MEDS ORDERED: LIDOCAINE 1%-EPI 1:100000 20 ML MDV SUBQ STA (22:09)
[2021-03-04 22:33] VITALS: BP 127/71
== END 2021-03-04 22:33 | disposition home or self-care (01) ==
LOC: ED 19:38
DX: S01.112A Laceration without foreign body of left eyelid and periocular area, initial encounter (principal); W01.0XXA Fall on same level from slipping, tripping and stumbling without subsequent striking against object, initial encounter; Y92.008 Other place in unspecified non-institutional (private) residence as the place of occurrence of the external cause; Z23 Encounter for immunization; I10 Essential (primary) hypertension; G20 Parkinson's disease; Z87.891 Personal history of nicotine dependence
CPT/HCPCS: 12011; 90471; 99282; 99283

== ENCOUNTER 2021-05-27 15:49 | Outpatient (CLI) | payer MEDICARE, OTHER ==
--- NOTE | 2021-05-27 16:55 | XRAY Report ---
PROCEDURE: Hip w/Pelvis 2-3V LT INDICATIONS: PAIN IN LEFT HIP TECHNIQUE: AP pelvis with lateral view(s) of the left hip(s). COMPARISON: None. FINDINGS: Bones: No fractures or dislocations. Pelvic ring appears intact. No suspicious bony lesions. Mild joint space during and periarticular osteophyte formation at the bilateral hip joints. Soft tissues: The visualized bowel gas pattern is normal. No suspicious soft tissue calcifications. IMPRESSION: Bilateral hip osteoarthritis. No acute fracture. No osseous lesion. If symptoms and/or c linical suspicion for pathology continue, further assessment with repeat plain films, or advanced mariah ging (e.g., CT, MRI, or bone scan) is recommended for further assessment. Reviewed by: Crystal Mendes MD on 05/27/2021 3:54 PM URSULA Approved by: Crystal Mendes MD on 05/27/2021 3:54 PM URSULA Station ID: [id number]
== END 2021-05-27 15:50 | disposition home or self-care (01) ==
LOC: DI 15:49
PROVIDERS: ATTEND Nurse Practitioner Family
DX: M25.552 Pain in left hip (principal); M16.0 Bilateral primary osteoarthritis of hip

== ENCOUNTER 2022-10-07 00:25 | Outpatient (CLI) | payer MEDICARE, OTHER | END 2022-10-07 23:59 | disposition EMS.NT | LOC: EMS 00:25 | DX: R53.1 Weakness (principal) ==

== ENCOUNTER → 2022-10-10 | Outpatient (CLI) | payer MEDICARE, OTHER | END | disposition EMS.NT | LOC: EMS 22:47 | DX: Z03.89 Encounter for observation for other suspected diseases and conditions ruled out (principal) ==

== ENCOUNTER 2022-10-13 21:00 | Emergency (ER) | payer MEDICARE, OTHER ==
[2022-10-13 21:12] VITALS: BP 149/69
[2022-10-13 22:50] LABS: BASOPHILS % (AUTO) 0.6 %; EOSINOPHILS # (AUTO) 0.1 10^3/uL (0.0-0.7); EOSINOPHILS % (AUTO) 2.2 %; HCT - HEMATOCRIT 51.1 % (42.0-52.0); LYMPHOCYTES % (AUTO) 16.2 %; MEAN CORPUSCULAR HEMOGLOBIN 30.2 pg (27.0-31.0); MEAN CORPUSCULAR HGB CONC 31.3 g/dL (32.0-36.0); MEAN CORPUSCULAR VOLUME 96.6 fL (80.0-94.0); MEAN PLATELET VOLUME 10.1 fL (7.4-11.4); MONOCYTES # (AUTO) 0.6 10^3/uL (0.0-1.0); MONOCYTES % (AUTO) 9.8 %; NEUTROPHILS # (AUTO) 4.6 10^3/uL (1.5-6.6); PLT - PLATELET COUNT 155 10^3/uL (130-450); RED BLOOD COUNT 5.29 10^6/uL (4.70-6.10); RED CELL DISTRIBUTION WIDTH 12.7 % (12.0-15.0); WHITE BLOOD COUNT 6.4 x10^3/uL (4.8-10.8)
[2022-10-13 23:10] LABS: ALBUMIN/GLOBULIN RATIO 1.4 (1.0-2.2); ALKALINE PHOSPHATASE 101 IU/L (42-121); ALT ALANINE AMINOTRANSFERASE < 10 IU/L (10-60); AST ASPARTATE AMINOTRANSFERASE 30 IU/L (10-42); BUN - BLOOD UREA NITROGEN 29 mg/dL (6-20); CALCIUM 9.3 mg/dL (8.5-10.3); CARBON DIOXIDE - CO2 23 mmol/L (21-32); CHLORIDE 104 mmol/L (101-111); CREATININE 0.8 mg/dL (0.6-1.2); GFR - MDRD 96 (>89); GLUCOSE 105 mg/dL (70-100); MAGNESIUM 2.2 mg/dL (1.7-2.8); PHOSPHORUS 4.2 mg/dL (2.5-4.6); POTASSIUM 3.6 mmol/L (3.5-5.0); SODIUM 137 mmol/L (135-145); TOTAL PROTEIN 6.9 g/dL (6.7-8.2)
[2022-10-14] MEDS ORDERED: HYDROcod/ACETAM 5/325 MG TABLET PO STA (00:36)
--- NOTE | 2022-10-14 00:39 | ED Physician Documentation ---
History of Present Illness - Stated complaint Stated Complaint: LEG CRAMPS - Chief complaint Chief Complaint: Ext Problem - History obtained from History obtained from: Patient, Family - Additonal information Additional information: The patient comes to the emergency department with chief complaint of bilateral lower leg tightness. He states he has a history of Parkinson's disease and that this is happened before on a number of occasions, but this seems a little more intense than usual. The patient states his Parkinson's is more of a spastic condition as opposed to a tremor. The patient states that he is here because he did not want to get to be 2:00 in the morning and have the pain still going on. The patient states that he has not had any fevers or chills. No shortness of breath. He has no history of kidney, liver, or heart failure. He states that actually, the objective swelling in his legs and tightness is not as severe as it has been previously when he squeezes his legs. However, the feeling of tightness is more so. The patient states he has no history of DVT. He has had ultrasound work-up in the past and no clots have ever been found. Patient states the last time he was worked up in this regard was "not that long ago", but he cannot remember exactly when. The patient denies any recent injury. He did come back on October 03 from [place], where he received his second dose of stem cells for his Parkinson's. Patient states he is on pramipexole for the Parkinson's, but he does not like the side effects. No other complaints at this time. Review of Systems Ten Systems: 10 systems reviewed and negative Constitutional: reports: Reviewed and negative Eyes: reports: Reviewed and negative Ears: reports: Reviewed and negative Nose: reports: Reviewed and negative Throat: reports: Reviewed and negative Cardiac: reports: Reviewed and negative Respiratory: reports: Reviewed and negative GI: reports: Reviewed and negative : reports: Reviewed and negative Skin: reports: Reviewed and negative Musculoskeletal: reports: Extremity pain Neurologic: reports: Reviewed and negative Psychiatric: reports: Reviewed and negative Endocrine: reports: Reviewed and negative Immunocompromised: reports: Reviewed and negative PD PAST MEDICAL HISTORY - Past Medical History Cardiovascular: High cholesterol, Hypertension, Murmur Respiratory: Shortness of breath Neuro: Parkinson's Endocrine/Autoimmune: None GI: None : Other HEENT: Chronic hearing loss, Chronic vision loss Psych: None Musculoskeletal: Osteoarthritis, Other Derm: None - Past Surgical History Past Surgical History: Yes General: Colonoscopy Ortho: Shoulder arthroplasty, Spine surgery, Other Cardiovascular: Other HEENT: Tonsil/Adenoidectomy - Present Medications Home Medications: Ambulatory Orders Medication Instructions Recorded Confirmed Baclofen [Lioresal] 10 mg PO TID 01/22/21 02/22/21 Escitalopram [Lexapro] 10 mg PO DAILY 01/22/21 02/22/21 Pravastatin Sodium [Pravachol] 20 mg PO DAILY 01/22/21 02/22/21 polyethylene glycoL 3350 [Miralax] 17 gm PO DAILY PRN #1 bottle 01/22/21 02/22/21 Aspirin EC [Ecotrin] 81 mg PO DAILY 02/07/21 02/22/21 Carbidopa/Levodopa 25/100 [Sinemet 2 tab PO .7XD 02/07/21 02/22/21 25 mg/100 mg] Cyclobenzaprine HCl 5 - 10 mg PO Q8HR PRN 02/07/21 02/22/21 Lisinopril [Zestril] 20 mg PO DAILY 02/07/21 02/22/21 Metoprolol Tartrate [Lopressor] 25 mg PO BID 02/07/21 02/22/21 Pramipexole Di-HCl [Mirapex] 0.75 mg PO .6XD 02/07/21 02/22/21 Docusate Sodium [Dulcolax Stool 100 mg PO PRN PRN 02/11/21 02/22/21 Softener] Ferrous Sulfate 325 mg PO DAILY 02/11/21 02/22/21 Multivit-Min/FA/Lycopen/Lutein 1 tab PO DAILY 02/11/21 02/22/21 [Centrum Silver Men Tablet] oxyCODONE [Roxicodone] 5 mg PO Q4H PRN #14 tablet 02/12/21 02/22/21 HYDROcod/ACETAM 5/325 [[place] 5/325] 1 - 2 tablet PO Q6H PRN #10 tablet 10/14/22 - Allergies Allergies/Adverse Reactions: Allergies Allergy/AdvReac Type Severity Reaction Status Date / Time Sulfa (Sulfonamide Allergy Rash Verified 10/13/22 21:13 Antibiotics) - Social History Does the pt smoke?: No Smoking Status: Former smoker Does the pt drink ETOH?: No Does the pt have substance abuse?: Yes - Immunizations Immunizations are current?: Yes PD ED PE NORMAL - Vitals Vital signs reviewed: Yes - General General: Alert and oriented X 3, No acute distress, Well developed/nourished - HEENT HEENT: Atraumatic, PERRL, EOMI, Moist mucous membranes - Neck Neck: Supple, no meningeal sign - Respiratory Respiratory: No respiratory distress - Derm Derm: Normal color, Warm and dry, No rash - Extremities Extremities: No deformity, Other (No pitting edema, but bilateral calves do feel firm.) - Neuro Neuro: Alert and oriented X 3 - Psych Psych: Normal mood, Normal affect Results - Vitals Vitals: Vital Signs - 24 hr 10/13/22 21:10 Temperature 36.5 C Heart Rate 86 Respiratory 18 Rate Blood Pressure 149/69 H O2 Saturation 98 Oxygen O2 Source Room air - Labs Labs: Laboratory Tests 10/13/22 10/13/22 22:45 22:45 WBC 6.4 RBC 5.29 Hgb 16.0 Hct 51.1 MCV 96.6 H MCH 30.2 MCHC 31.3 L RDW 12.7 Plt Count 155 MPV 10.1 Neut # (Auto) 4.6 Lymph # (Auto) 1.0 L Frontier # (Auto) 0.6 Eos # (Auto) 0.1 Baso # (Auto) 0.0 Absolute Nucleated RBC 0.00 Nucleated RBC % 0.0 Sodium 137 Potassium 3.6 Chloride 104 Carbon Dioxide 23 Anion Gap 10.0 BUN 29 H Creatinine 0.8 Estimated GFR (MDRD) 96 Glucose 105 H Calcium 9.3 Phosphorus 4.2 Magnesium 2.2 Total Bilirubin 1.0 AST 30 ALT < 10 L Alkaline Phosphatase 101 Total Protein 6.9 Albumin 4.0 Globulin 2.9 Albumin/Globulin Ratio 1.4 PD MEDICAL DECISION MAKING - ED course Complexity details: reviewed results, re-evaluated patient, considered differential, d/w patient, d/w family ED course: I discussed with the patient and his daughter that his labs are unremarkable. He has fairly symmetrical findings bilaterally and has had these symptoms many times before with negative work-up for DVT. He does not have any other symptoms or findings to raise concern for possible organ failure. He also does not have any erythema or induration to indicate cellulitis or peripheral vascular disease. At this point in time, I suspect a flareup of the previous processes that have brought about the symptoms in relation to his Parkinson's. The patient has been given a dose of Vicodin here in the emergency department for symptomatic management. He has been given a prescription for the same. We have discussed the need for follow-up and the usual indications for return. Departure - Departure Disposition: 01 Home, Self Care Clinical Impression: Bilateral calf pain Condition: Stable Instructions: ED Muscle Pain Leg Cramps Prescriptions: HYDROcod/ACETAM 5/325 [[place] 5/325] 1 - 2 tablet PO Q6H PRN #10 tablet PRN Reason: Pain Comments: Your laboratory studies look good. There is no evidence of infection or blood clot, nor is there evidence of a failure of any of your internal organs which would cause swelling inferior leg. At this point in time, you have been treated for your symptoms. A prescription for a few more days with the pain medicine has been electronically transmitted to the [facility] pharmacy in [place]. As far as you are interested in working with a dietitian, we do have a dietetics program here at our hospital. You may call [phone], extension [phone] for any questions, and to schedule an appointment, you may call [phone]. Depending on your insurance, the dietary department may ask for a referral from your primary doctor.
== END 2022-10-14 00:53 | disposition home or self-care (01) ==
LOC: ED 21:00
DX: M79.662 Pain in left lower leg (principal); M79.661 Pain in right lower leg; Z87.891 Personal history of nicotine dependence
CPT/HCPCS: 36415; 80053; 83735; 84100; 85025; 99283; 99284; A9270

== ENCOUNTER 2022-11-22 16:01 | Emergency (ER) | payer MEDICARE, OTHER ==
--- NOTE | 2022-11-22 16:35 | ED Physician Documentation ---
History of Present Illness - Stated complaint Stated Complaint: L LEG PX - Chief complaint Chief Complaint: Ext Problem - Additonal information Additional information: 72-year-old male presents emergency department for evaluation of acute swelling and redness to the left lower leg. He reports that over the last 2 or so days he has had some minor pain and swelling in the ankle region but when he woke up this morning the entirety of the lower extremity from the knee down was swollen and erythematous. No history of previous cancer or DVT though he did travel to [place] via airplane on the beginning of the year. He is not anticoagulated. He does have an allergy to sulfa Review of Systems Constitutional: denies: Fever, Chills Eyes: reports: Reviewed and negative Nose: reports: Reviewed and negative Throat: reports: Reviewed and negative Cardiac: reports: Reviewed and negative Respiratory: reports: Reviewed and negative : reports: Reviewed and negative Skin: reports: Lesions Musculoskeletal: reports: Extremity pain, Extremity swelling PD PAST MEDICAL HISTORY - Past Medical History Cardiovascular: High cholesterol, Hypertension, Murmur Respiratory: Shortness of breath Neuro: Parkinson's Endocrine/Autoimmune: None GI: None : Other HEENT: Chronic hearing loss, Chronic vision loss Psych: None Musculoskeletal: Osteoarthritis, Other Derm: None - Past Surgical History Past Surgical History: Yes General: Colonoscopy Ortho: Shoulder arthroplasty, Spine surgery, Other Cardiovascular: Other HEENT: Tonsil/Adenoidectomy - Present Medications Home Medications: Ambulatory Orders Medication Instructions Recorded Confirmed Baclofen [Lioresal] 10 mg PO TID 01/22/21 02/22/21 Escitalopram [Lexapro] 10 mg PO DAILY 01/22/21 02/22/21 Pravastatin Sodium [Pravachol] 20 mg PO DAILY 01/22/21 02/22/21 polyethylene glycoL 3350 [Miralax] 17 gm PO DAILY PRN #1 bottle 01/22/21 02/22/21 Aspirin EC [Ecotrin] 81 mg PO DAILY 02/07/21 02/22/21 Carbidopa/Levodopa 25/100 [Sinemet 2 tab PO .7XD 02/07/21 02/22/21 25 mg/100 mg] Cyclobenzaprine HCl 5 - 10 mg PO Q8HR PRN 02/07/21 02/22/21 Lisinopril [Zestril] 20 mg PO DAILY 02/07/21 02/22/21 Metoprolol Tartrate [Lopressor] 25 mg PO BID 02/07/21 02/22/21 Pramipexole Di-HCl [Mirapex] 0.75 mg PO .6XD 02/07/21 02/22/21 Docusate Sodium [Dulcolax Stool 100 mg PO PRN PRN 02/11/21 02/22/21 Softener] Ferrous Sulfate 325 mg PO DAILY 02/11/21 02/22/21 Multivit-Min/FA/Lycopen/Lutein 1 tab PO DAILY 02/11/21 02/22/21 [Centrum Silver Men Tablet] oxyCODONE [Roxicodone] 5 mg PO Q4H PRN #14 tablet 02/12/21 02/22/21 HYDROcod/ACETAM 5/325 [[place] 5/325] 1 - 2 tablet PO Q6H PRN #10 tablet 10/14/22 Doxycycline Hyclate 100 mg PO BID #20 cap 11/22/22 - Allergies Allergies/Adverse Reactions: Allergies Allergy/AdvReac Type Severity Reaction Status Date / Time Sulfa (Sulfonamide Allergy Rash Verified 11/22/22 16:12 Antibiotics) - Social History Does the pt smoke?: No Smoking Status: Former smoker Does the pt drink ETOH?: No Does the pt have substance abuse?: Yes - Immunizations Immunizations are current?: Yes PD ED PE EXPANDED - General General: Alert, No acute distress - Cardiac Cardiac: Regular Rate, Radial strong equal, Pedal strong equal, Cap refill < 2 sec - Respiratory Respiratory: Clear to ausultation aram. No: Distress, Labored - Abdomen Abdomen: Normal Bowel sounds. No: Tender to palpation - Extremities Extremities: Left leg (Significant swelling and erythema below the knee on the left leg. 1+ DP pulse. Brisk cap refill. Significant tenderness to palpation) Results - Vitals Vitals: Vital Signs - 24 hr 11/22/22 16:09 Temperature 36.2 C L Heart Rate 81 Respiratory 18 Rate Blood Pressure 162/86 H O2 Saturation 97 Oxygen O2 Source Room air - Labs Labs: Laboratory Tests 11/22/22 11/22/22 16:37 16:37 WBC 8.3 RBC 5.46 Hgb 16.5 Hct 53.1 H MCV 97.3 H MCH 30.2 MCHC 31.1 L RDW 12.8 Plt Count 160 MPV 10.1 Neut # (Auto) 6.3 Lymph # (Auto) 1.0 L [place] # (Auto) 0.9 Eos # (Auto) 0.1 Baso # (Auto) 0.0 Absolute Nucleated RBC 0.00 Nucleated RBC % 0.0 Sodium 139 Potassium 4.1 Chloride 103 Carbon Dioxide 28 Anion Gap 8.0 BUN 25 H Creatinine 0.9 Estimated GFR (MDRD) 83 L Glucose 107 H Calcium 9.3 Total Bilirubin 1.0 AST 25 ALT < 10 L Alkaline Phosphatase 98 Total Protein 7.6 Albumin 4.1 Globulin 3.5 Albumin/Globulin Ratio 1.2 Lipase 211 H - Rads (name of study) left leg US DVT Radiology: Final report received (Negative for DVT) PD Medical Decision Making - ED course Complexity details: reviewed results, re-evaluated patient, considered differential, d/w patient ED course: 72-year-old male presents to the emergency department for evaluation of acute left lower leg pain redness and swelling that began yesterday. He did travel by airplane to [place] recently. He has had no fevers. Here in the ER we did do an ultrasound to rule out a DVT given recent airplane travel. This was negative. He does have fairly extensive erythema below the knee on the left leg with swelling and tenderness and mild induration. Given concern for cellulitis I did obtain a CBC to rule out leukocytosis. Clinically he does not appear septic as there is no fevers, white count, hypotension or tachycardia. In order to manage the infection we have given him an injection of ceftriaxone IM. He will be started on doxycycline twice daily for the next 10 days. This has adequate staph and strep coverage. Unfortunately there were no lesions or discharge to culture. Patient is discharged home in stable condition. Emergent worrisome return precautions discussed Departure - Departure Disposition: 01 Home, Self Care Clinical Impression: Cellulitis of left lower leg Condition: Stable Record reviewed to determine appropriate education?: Yes Instructions: Cellulitis Dc Prescriptions: Doxycycline Hyclate 100 mg PO BID #20 cap Comments: Kai you came to the emergency department because you have developed some swelling redness and pain on the left lower leg. This did follow recent travel to [place] via airplane. We did an ultrasound today that did not show any findings to suggest a deep vein thrombosis. We also obtained a CBC that showed no white blood cell count elevation. This is important because I believe you have an infection in the left lower leg but nothing that would require you to be admitted to the hospital. In order to manage this infection we have given you an injection of an antibiotic called ceftriaxone and I am starting you on an antibiotic called doxycycline that you will take twice daily for the next 10 days. Be careful being in the sun while on doxycycline you can get a rash. If despite starting the antibiotics you find you are having worsening pain, swelling increased redness any red streaking, develop any fevers you must return immediately to the ER for second evaluation
[2022-11-22 16:41] LABS: BASOPHILS % (AUTO) 0.4 %; EOSINOPHILS # (AUTO) 0.1 10^3/uL (0.0-0.7); EOSINOPHILS % (AUTO) 1.4 %; HCT - HEMATOCRIT 53.1 % (42.0-52.0); HGB - HEMOGLOBIN 16.5 g/dL (14.0-18.0); LYMPHOCYTES % (AUTO) 11.4 %; MEAN CORPUSCULAR HEMOGLOBIN 30.2 pg (27.0-31.0); MEAN CORPUSCULAR HGB CONC 31.1 g/dL (32.0-36.0); MEAN CORPUSCULAR VOLUME 97.3 fL (80.0-94.0); MEAN PLATELET VOLUME 10.1 fL (7.4-11.4); MONOCYTES # (AUTO) 0.9 10^3/uL (0.0-1.0); MONOCYTES % (AUTO) 10.8 %; NEUTROPHILS # (AUTO) 6.3 10^3/uL (1.5-6.6); NEUTROPHILS % (AUTO) 75.8 %; PLT - PLATELET COUNT 160 10^3/uL (130-450); RED BLOOD COUNT 5.46 10^6/uL (4.70-6.10); RED CELL DISTRIBUTION WIDTH 12.8 % (12.0-15.0); WHITE BLOOD COUNT 8.3 x10^3/uL (4.8-10.8)
[2022-11-22 16:54] LABS: ALBUMIN 4.1 g/dL (3.2-5.5); ALBUMIN/GLOBULIN RATIO 1.2 (1.0-2.2); ALKALINE PHOSPHATASE 98 IU/L (42-121); ALT ALANINE AMINOTRANSFERASE < 10 IU/L (10-60); AST ASPARTATE AMINOTRANSFERASE 25 IU/L (10-42); BUN - BLOOD UREA NITROGEN 25 mg/dL (6-20); CALCIUM 9.3 mg/dL (8.5-10.3); CARBON DIOXIDE - CO2 28 mmol/L (21-32); CHLORIDE 103 mmol/L (101-111); CREATININE 0.9 mg/dL (0.6-1.2); GFR - MDRD 83 (>89); GLUCOSE 107 mg/dL (70-100); LIPASE 211 U/L (22-51); POTASSIUM 4.1 mmol/L (3.5-5.0); SODIUM 139 mmol/L (135-145); TOTAL PROTEIN 7.6 g/dL (6.7-8.2)
--- NOTE | 2022-11-22 18:02 | Ultrasound Report ---
PROCEDURE: Duplex Ext Veins Left INDICATIONS: swelling and pain TECHNIQUE: Real-time imaging, as well as color and pulse Doppler interrogation, were performed of the lower extr emity deep veins from the inguinal ligament to the popliteal fossa. COMPARISON: None. FINDINGS: The deep veins are normally compressible, and free of intraluminal thrombus. Color and pu lse Doppler demonstrate normal phasic intraluminal flow. There is normal augmentation response to di stal compression maneuver. Unable to compress calf due to body habitus. IMPRESSION: 1. No DVT in the left lower extremity from common femoral vein to popliteal vein. Reviewed by: Lucy Chen MD on 11/22/2022 5:00 PM [place] Approved by: Lucy Chen MD on 11/22/2022 5:00 PM [facility] Station ID: [id number]
[2022-11-22] MEDS ORDERED: cefTRIAXone 1 GM VIAL IM STA (18:20)
[2022-11-22] MEDS ORDERED: LIDOCAINE 1% 2 ML VIAL MC ONE (18:20)
[2022-11-22 18:59] VITALS: BP 129/83
== END 2022-11-22 18:58 | disposition home or self-care (01) ==
LOC: ED 16:01
DX: L03.116 Cellulitis of left lower limb (principal); I10 Essential (primary) hypertension
CPT/HCPCS: 36415; 80053; 83690; 85025; 96372; 99284

== ENCOUNTER 2023-01-06 05:48 | Outpatient (CLI) | payer MEDICARE, OTHER | END 2023-01-06 05:49 | disposition EMS.NT | LOC: EMS 05:48 | DX: R26.2 Difficulty in walking, not elsewhere classified (principal); G20 Parkinson's disease ==

== ENCOUNTER 2023-01-06 09:37 | Outpatient (CLI) | payer MEDICARE, OTHER | END 2023-01-06 23:59 | disposition critical access hospital (66) | LOC: EMS 09:37 | DX: M54.50 Low back pain, unspecified (principal); M79.605 Pain in left leg; M79.604 Pain in right leg; G20 Parkinson's disease | CPT/HCPCS: A0425; A0429 ==

== ENCOUNTER 2023-01-06 10:07 | Emergency (ER) | payer MEDICARE, OTHER ==
[2023-01-06 10:23] VITALS: BP 150/84
--- NOTE | 2023-01-06 11:53 | ED Physician Documentation ---
History of Present Illness - Stated complaint Stated Complaint: BACK PX - Chief complaint Chief Complaint: Back Pain - History obtained from History obtained from: Patient - History of Present Illness Pain level max: 6 Pain level now: 5 - Additonal information Additional information: 72 yo M with parkinsons He states that he feels like his body is "spasming". He states that he was started on a new muscle relaxant 3 days ago but does not know the name of it. He did not bring it with him. He states that he is on carbidopa/levodopa at home. He has not contacted his neurologist. He states he sees a neurologist in [place] but does not know who it is or where they are at. No fevers, no chills, nothing makes it better or worse. No recent illness, no trauma. Had the patient contact his doctor who apparently started him on methocarbamol 1000 mg by mouth 3 times a day. Review of Systems Constitutional: denies: Chills GI: denies: Nausea, Vomiting, Diarrhea Skin: denies: Rash Musculoskeletal: denies: Neck pain, Back pain Neurologic: denies: Headache PD PAST MEDICAL HISTORY - Past Medical History Past Medical History: Yes Cardiovascular: High cholesterol, Hypertension, Murmur Respiratory: Shortness of breath Neuro: Parkinson's Endocrine/Autoimmune: None GI: None : Other HEENT: Chronic hearing loss, Chronic vision loss Psych: None Musculoskeletal: Osteoarthritis, Chronic back pain, Other Derm: None - Past Surgical History Past Surgical History: Yes General: Colonoscopy Ortho: Shoulder arthroplasty, Spine surgery, Other Cardiovascular: Other HEENT: Tonsil/Adenoidectomy - Present Medications Home Medications: Ambulatory Orders Medication Instructions Recorded Confirmed Baclofen [Lioresal] 10 mg PO TID 01/22/21 02/22/21 Escitalopram [Lexapro] 10 mg PO DAILY 01/22/21 02/22/21 Pravastatin Sodium [Pravachol] 20 mg PO DAILY 01/22/21 02/22/21 Aspirin EC [Ecotrin] 81 mg PO DAILY 02/07/21 02/22/21 Carbidopa/Levodopa 25/100 [Sinemet 2 tab PO .7XD 02/07/21 01/06/23 25 mg/100 mg] Cyclobenzaprine HCl 5 - 10 mg PO Q8HR PRN 02/07/21 02/22/21 Lisinopril [Zestril] 20 mg PO DAILY 02/07/21 02/22/21 Metoprolol Tartrate [Lopressor] 25 mg PO BID 02/07/21 02/22/21 Pramipexole Di-HCl [Mirapex] 0.75 mg PO .7XD 02/07/21 01/06/23 Docusate Sodium [Dulcolax Stool 100 mg PO PRN PRN 02/11/21 02/22/21 Softener] Ferrous Sulfate 325 mg PO DAILY 02/11/21 02/22/21 Multivit-Min/FA/Lycopen/Lutein 1 tab PO DAILY 02/11/21 01/06/23 [Centrum Silver Men Tablet] HYDROcod/ACETAM 5/325 [[place] 5/325] 1 - 2 tablet PO Q6H PRN #10 tablet 10/14/22 Baclofen [Lioresal] 10 mg PO TID #30 tablet 01/06/23 methocarbamoL [Methocarbamol] 1,000 mg PO TID 01/06/23 01/06/23 - Allergies Allergies/Adverse Reactions: Allergies Allergy/AdvReac Type Severity Reaction Status Date / Time Sulfa (Sulfonamide Allergy Rash Verified 01/06/23 10:20 Antibiotics) - Social History Does the pt smoke?: No Smoking Status: Former smoker Does the pt drink ETOH?: No Does the pt have substance abuse?: Yes Substance Use and Type: Marijuana - Immunizations Immunizations are current?: Yes PD ED PE NORMAL - Vitals Vital signs reviewed: Yes - General General: Alert and oriented X 3, No acute distress - HEENT HEENT: Moist mucous membranes - Neck Neck: Supple, no meningeal sign - Cardiac Cardiac: RRR, Strong equal pulses - Respiratory Respiratory: No respiratory distress, Clear bilaterally - Abdomen Abdomen: Soft, Non tender, Non distended - Derm Derm: Warm and dry - Neuro Neuro: Alert and oriented X 3 - Psych Psych: Normal mood, Normal affect Results - Vitals Vitals: Vital Signs - 24 hr 01/06/23 10:20 Temperature 36.8 C Heart Rate 75 Respiratory 16 Rate Blood Pressure 150/84 H O2 Saturation 96 Oxygen O2 Source Room air - Labs Labs: Laboratory Tests 01/06/23 01/06/23 12:26 12:26 WBC 6.8 RBC 5.97 Hgb 18.1 H Hct 56.9 H MCV 95.3 H MCH 30.3 MCHC 31.8 L RDW 12.9 Plt Count 161 MPV 10.0 Neut # (Auto) 4.9 Lymph # (Auto) 1.2 L [place] # (Auto) 0.7 Eos # (Auto) 0.1 Baso # (Auto) 0.0 Absolute Nucleated RBC 0.00 Nucleated RBC % 0.0 Sodium 139 Potassium 4.1 Chloride 104 Carbon Dioxide 26 Anion Gap 9.0 BUN 26 H Creatinine 0.8 Estimated GFR (MDRD) 96 Glucose 100 Calcium 9.7 Phosphorus 3.3 Magnesium 2.3 Total Bilirubin 1.3 H AST 28 ALT < 10 L Alkaline Phosphatase 102 Total Protein 8.1 Albumin 4.2 Globulin 3.9 Albumin/Globulin Ratio 1.1 PD Medical Decision Making - ED course Complexity details: reviewed results, re-evaluated patient, considered differential, d/w patient ED course: CBC shows a hemoglobin of 18, hematocrit 56.9 consistent with hemoconcentration. His CMP shows an elevated BUN to creatinine ratio, BUN is 26, creatinine is 0.8. Otherwise unremarkable labs. Patient is drinking fluids without difficulty here. He was given baclofen and the spasming decreased and he is able to move his arms and legs normally. We will change him from methocarbamol to baclofen. Recommend that he contact his neurologist regarding his medications. He does not know who his neurologist is or where they practice. He states he has this information at home. Therefore I could not contact them today. Patient counseled regarding signs and symptoms for which I believe and urgent re-evaluation would be necessary. Patient with good understanding of and agreement to plan and is comfortable going home at this time This document was made in part using voice recognition software. While efforts are made to proofread this document, sound alike and grammatical errors may occur. Departure - Departure Disposition: 01 Home, Self Care Clinical Impression: Parkinson disease, Dehydration, Muscle spasm Condition: Good Instructions: Parkinson Disease, ED Dehydration Follow-Up: RONAK ANDRADE ARNP [Primary Care Provider] - Within 1 week Prescriptions: Baclofen [Lioresal] 10 mg PO TID #30 tablet Comments: We will change your methocarbamol to baclofen. [facility] in [place]. It is recommended that you contact your neurologist to discuss the increasing rigidity and spasms so that they can adjust your Parkinson's medication. Please also make sure to increase your water intake as you do appear dehydrated today as well. Please return if you worsen Discharge Date/Time: 01/06/23 13:29
[2023-01-06] MEDS ORDERED: BACLOFEN 10 MG TABLET PO STA (12:20)
[2023-01-06 12:31] LABS: BASOPHILS % (AUTO) 0.4 %; EOSINOPHILS # (AUTO) 0.1 10^3/uL (0.0-0.7); EOSINOPHILS % (AUTO) 1.2 %; HCT - HEMATOCRIT 56.9 % (42.0-52.0); HGB - HEMOGLOBIN 18.1 g/dL (14.0-18.0); LYMPHOCYTES # (AUTO) 1.2 10^3/uL (1.5-3.5); LYMPHOCYTES % (AUTO) 16.9 %; MEAN CORPUSCULAR HEMOGLOBIN 30.3 pg (27.0-31.0); MEAN CORPUSCULAR HGB CONC 31.8 g/dL (32.0-36.0); MEAN CORPUSCULAR VOLUME 95.3 fL (80.0-94.0); MONOCYTES # (AUTO) 0.7 10^3/uL (0.0-1.0); MONOCYTES % (AUTO) 9.6 %; NEUTROPHILS # (AUTO) 4.9 10^3/uL (1.5-6.6); NEUTROPHILS % (AUTO) 71.6 %; PLT - PLATELET COUNT 161 10^3/uL (130-450); RED BLOOD COUNT 5.97 10^6/uL (4.70-6.10); RED CELL DISTRIBUTION WIDTH 12.9 % (12.0-15.0); WHITE BLOOD COUNT 6.8 x10^3/uL (4.8-10.8)
[2023-01-06 12:52] LABS: ALBUMIN 4.2 g/dL (3.2-5.5); ALBUMIN/GLOBULIN RATIO 1.1 (1.0-2.2); ALKALINE PHOSPHATASE 102 IU/L (42-121); ALT ALANINE AMINOTRANSFERASE < 10 IU/L (10-60); AST ASPARTATE AMINOTRANSFERASE 28 IU/L (10-42); BILIRUBIN,TOTAL 1.3 mg/dL (0.2-1.0); BUN - BLOOD UREA NITROGEN 26 mg/dL (6-20); CALCIUM 9.7 mg/dL (8.5-10.3); CARBON DIOXIDE - CO2 26 mmol/L (21-32); CHLORIDE 104 mmol/L (101-111); CREATININE 0.8 mg/dL (0.6-1.2); GFR - MDRD 96 (>89); GLUCOSE 100 mg/dL (70-100); MAGNESIUM 2.3 mg/dL (1.7-2.8); PHOSPHORUS 3.3 mg/dL (2.5-4.6); POTASSIUM 4.1 mmol/L (3.5-5.0); SODIUM 139 mmol/L (135-145); TOTAL PROTEIN 8.1 g/dL (6.7-8.2)
== END 2023-01-06 13:29 | disposition home or self-care (01) ==
LOC: EDUNIT# → ED 10:07
DX: M62.830 Muscle spasm of back (principal); E86.0 Dehydration; G20 Parkinson's disease; I10 Essential (primary) hypertension; Z87.891 Personal history of nicotine dependence
CPT/HCPCS: 36415; 80053; 83735; 84100; 85025; 99283; 99284; A9270

== ENCOUNTER 2023-01-31 18:37 | Outpatient (CLI) | payer MEDICARE, OTHER | END 2023-01-31 23:59 | disposition critical access hospital (66) | LOC: EMS 18:37 | DX: R29.898 Other symptoms and signs involving the musculoskeletal system (principal); R53.1 Weakness; Z74.09 Other reduced mobility | CPT/HCPCS: A0425; A0429 ==

== ENCOUNTER 2023-01-31 19:05 | Emergency (ER) | payer MEDICARE, OTHER ==
[2023-01-31 19:36] LABS: BASOPHILS % (AUTO) 0.4 %; EOSINOPHILS # (AUTO) 0.1 10^3/uL (0.0-0.7); EOSINOPHILS % (AUTO) 1.8 %; HCT - HEMATOCRIT 53.5 % (42.0-52.0); HGB - HEMOGLOBIN 16.9 g/dL (14.0-18.0); LYMPHOCYTES # (AUTO) 1.2 10^3/uL (1.5-3.5); MEAN CORPUSCULAR HEMOGLOBIN 30.5 pg (27.0-31.0); MEAN CORPUSCULAR HGB CONC 31.6 g/dL (32.0-36.0); MEAN CORPUSCULAR VOLUME 96.6 fL (80.0-94.0); MEAN PLATELET VOLUME 10.2 fL (7.4-11.4); MONOCYTES # (AUTO) 0.6 10^3/uL (0.0-1.0); MONOCYTES % (AUTO) 8.3 %; NEUTROPHILS # (AUTO) 5.1 10^3/uL (1.5-6.6); NEUTROPHILS % (AUTO) 72.2 %; PLT - PLATELET COUNT 173 10^3/uL (130-450); RED BLOOD COUNT 5.54 10^6/uL (4.70-6.10); RED CELL DISTRIBUTION WIDTH 12.8 % (12.0-15.0); WHITE BLOOD COUNT 7.1 x10^3/uL (4.8-10.8)
[2023-01-31 19:50] LABS: ALBUMIN 3.9 g/dL (3.2-5.5); ALBUMIN/GLOBULIN RATIO 1.2 (1.0-2.2); ALKALINE PHOSPHATASE 88 IU/L (42-121); ALT ALANINE AMINOTRANSFERASE < 10 IU/L (10-60); AST ASPARTATE AMINOTRANSFERASE 23 IU/L (10-42); BILIRUBIN,TOTAL 1.3 mg/dL (0.2-1.0); BUN - BLOOD UREA NITROGEN 32 mg/dL (6-20); CALCIUM 9.2 mg/dL (8.5-10.3); CARBON DIOXIDE - CO2 28 mmol/L (21-32); CHLORIDE 104 mmol/L (101-111); CREATININE 0.9 mg/dL (0.6-1.2); GFR - MDRD 83 (>89); GLUCOSE 93 mg/dL (70-100); LIPASE 49 U/L (22-51); POTASSIUM 3.9 mmol/L (3.5-5.0); SODIUM 139 mmol/L (135-145); TOTAL PROTEIN 7.2 g/dL (6.7-8.2)
[2023-01-31] MEDS ORDERED: BACLOFEN 10 MG TABLET PO ONE (20:00)
[2023-01-31 20:03] LABS: BILIRUBIN,URINE NEGATIVE (NEGATIVE); GLUCOSE, URINE (UA) NEGATIVE (NEGATIVE); KETONES,URINE (UA) NEGATIVE (NEGATIVE); LEUKOCYTE ESTERASE, URINE NEGATIVE (NEGATIVE); NITRITE,URINE NEGATIVE (NEGATIVE); OCCULT BLOOD,URINE NEGATIVE (NEGATIVE); PROTEIN,URINE NEGATIVE (NEGATIVE); UROBILINOGEN,URINE 0.2 (NORMAL) E.U./dL (NORMAL)
[2023-01-31 20:05] LABS: CLARITY,URINE CLEAR (CLEAR)
--- NOTE | 2023-01-31 20:07 | ED Physician Documentation ---
History of Present Illness - Stated complaint Stated Complaint: WEAKNESS. MUSCLE STIFFNESS - Chief complaint Chief Complaint: General - History obtained from History obtained from: Patient - Additonal information Additional information: This is a 72-year-old male with a history of Parkinson's who presents with worsening of his muscle stiffness and spasms. He is on Carbidopa levodopa about 7 times a day with a total of 1400 mg of levodopa. He also takes baclofen several times a day. He states the medications do work, he takes some pursing in the morning and he can feel them kick in and he is able to start moving but they do not last long and he feels like he is constantly having to retake the medication. He understands that this is a result of his Parkinson's disorder but wanted to make sure nothing else was going on and was wondering if there are any additional medications that he could take. He has not a fever chills cough or URI symptoms chest pain or difficulty breathing but does note the stiffness and spasms that is extended to his torso at times, he does not have vomiting, diarrhea or constipation or any has not had any falls. He is following with a neurologist for this issue and has follow-up with them soon. Review of Systems Constitutional: reports: Reviewed and negative Cardiac: reports: Reviewed and negative Respiratory: reports: Reviewed and negative GI: reports: Reviewed and negative : reports: Reviewed and negative Musculoskeletal: reports: Other (Extremity stiffness and weakness) Neurologic: reports: Generalized weakness. denies: Focal weakness, Numbness, Difficulty speaking, Near syncope, Syncope, Seizure, Confused, Altered mental status, Unresponsive, Headache, Head injury, LOC PD PAST MEDICAL HISTORY - Past Medical History Past Medical History: Yes Cardiovascular: High cholesterol, Hypertension, Murmur Respiratory: Shortness of breath Neuro: Parkinson's Endocrine/Autoimmune: None GI: None : Other HEENT: Chronic hearing loss, Chronic vision loss Psych: None Musculoskeletal: Osteoarthritis, Chronic back pain, Other Derm: None - Past Surgical History Past Surgical History: Yes General: Colonoscopy Ortho: Shoulder arthroplasty, Spine surgery, Other Cardiovascular: Other HEENT: Tonsil/Adenoidectomy - Present Medications Home Medications: Ambulatory Orders Medication Instructions Recorded Confirmed Baclofen [Lioresal] 10 mg PO TID 01/22/21 02/22/21 Escitalopram [Lexapro] 10 mg PO DAILY 01/22/21 02/22/21 Pravastatin Sodium [Pravachol] 20 mg PO DAILY 01/22/21 02/22/21 Aspirin EC [Ecotrin] 81 mg PO DAILY 02/07/21 02/22/21 Carbidopa/Levodopa 25/100 [Sinemet 2 tab PO .7XD 02/07/21 01/06/23 25 mg/100 mg] Cyclobenzaprine HCl 5 - 10 mg PO Q8HR PRN 02/07/21 02/22/21 Lisinopril [Zestril] 20 mg PO DAILY 02/07/21 02/22/21 Metoprolol Tartrate [Lopressor] 25 mg PO BID 02/07/21 02/22/21 Pramipexole Di-HCl [Mirapex] 0.75 mg PO .7XD 02/07/21 01/06/23 Docusate Sodium [Dulcolax Stool 100 mg PO PRN PRN 02/11/21 02/22/21 Softener] Ferrous Sulfate 325 mg PO DAILY 02/11/21 02/22/21 Multivit-Min/FA/Lycopen/Lutein 1 tab PO DAILY 02/11/21 01/06/23 [Centrum Silver Men Tablet] HYDROcod/ACETAM 5/325 [[place] 5/325] 1 - 2 tablet PO Q6H PRN #10 tablet 10/14/22 Baclofen [Lioresal] 10 mg PO TID #30 tablet 01/06/23 methocarbamoL [Methocarbamol] 1,000 mg PO TID 01/06/23 01/06/23 - Allergies Allergies/Adverse Reactions: Allergies Allergy/AdvReac Type Severity Reaction Status Date / Time Sulfa (Sulfonamide Allergy Rash Verified 01/06/23 10:20 Antibiotics) - Social History Does the pt smoke?: No Smoking Status: Never smoker Does the pt drink ETOH?: No Does the pt have substance abuse?: Yes - Immunizations Immunizations are current?: Yes - POLST Patient has POLST: No PD ED PE NORMAL - Vitals Vital signs reviewed: Yes - General General: Alert and oriented X 3, No acute distress, Well developed/nourished - HEENT HEENT: Atraumatic, Pharynx benign - Neck Neck: Supple, no meningeal sign, No JVD - Cardiac Cardiac: RRR, No murmur - Respiratory Respiratory: No respiratory distress, Clear bilaterally - Abdomen Abdomen: Normal bowel sounds, Soft, Non tender, Non distended - Derm Derm: Normal color, Warm and dry, No rash - Extremities Extremities: Other (generalized stiffness in all ext, no focal deficits) - Neuro Neuro: Alert and oriented X 3 Eye Opening: Spontaneous Motor: Obeys Commands Verbal: Oriented GCS Score: 15 - Psych Psych: Normal mood, Normal affect Results - Vitals Vitals: Vital Signs - 24 hr 01/31/23 19:10 Temperature 36.7 C Heart Rate 75 Respiratory 20 Rate Blood Pressure 174/92 H O2 Saturation 99 Oxygen O2 Source Room air - Labs Labs: Laboratory Tests 01/31/23 01/31/23 01/31/23 19:32 19:32 19:32 WBC 7.1 RBC 5.54 Hgb 16.9 Hct 53.5 H MCV 96.6 H MCH 30.5 MCHC 31.6 L RDW 12.8 Plt Count 173 MPV 10.2 Neut # (Auto) 5.1 Lymph # (Auto) 1.2 L [place] # (Auto) 0.6 Eos # (Auto) 0.1 Baso # (Auto) 0.0 Absolute Nucleated RBC 0.00 Nucleated RBC % 0.0 Sodium 139 Potassium 3.9 Chloride 104 Carbon Dioxide 28 Anion Gap 7.0 BUN 32 H Creatinine 0.9 Estimated GFR (MDRD) 83 L Glucose 93 Calcium 9.2 Magnesium 2.1 Total Bilirubin 1.3 H AST 23 ALT < 10 L Alkaline Phosphatase 88 Total Protein 7.2 Albumin 3.9 Globulin 3.3 Albumin/Globulin Ratio 1.2 Lipase 49 Urine Color Urine Clarity Urine pH Ur Specific [place] Urine Protein Urine Glucose (UA) Urine Ketones Urine Occult Blood Urine Nitrite Urine Bilirubin Urine Urobilinogen Ur Leukocyte Esterase Ur Microscopic Review Urine Culture Comments 01/31/23 19:57 WBC RBC Hgb Hct MCV MCH MCHC RDW Plt Count MPV Neut # (Auto) Lymph # (Auto) [place] # (Auto) Eos # (Auto) Baso # (Auto) Absolute Nucleated RBC Nucleated RBC % Sodium Potassium Chloride Carbon Dioxide Anion Gap BUN Creatinine Estimated GFR (MDRD) Glucose Calcium Magnesium Total Bilirubin AST ALT Alkaline Phosphatase Total Protein Albumin Globulin Albumin/Globulin Ratio Lipase Urine Color YELLOW Urine Clarity CLEAR Urine pH 6.0 Ur Specific [place] 1.025 Urine Protein NEGATIVE Urine Glucose (UA) NEGATIVE Urine Ketones NEGATIVE Urine Occult Blood NEGATIVE Urine Nitrite NEGATIVE Urine Bilirubin NEGATIVE Urine Urobilinogen 0.2 (NORMAL) Ur Leukocyte Esterase NEGATIVE Ur Microscopic Review NOT INDICATED Urine Culture Comments NOT INDICATED PD Medical Decision Making - ED course Complexity details: reviewed results, re-evaluated patient, considered differential, d/w patient ED course: 72-year-old male with a past medical history of Parkinson disease presents here with increasing muscle stiffness and weakness. This seems to occur after his m uscle relaxers or carbidopa levodopa wears off in he does have improvement when he starts back on the medication but he feels like it is not lasting as long or as effective as it used to be. He is stable appearing today with no acute findings on his lab work. His symptoms unfortunately do appear to be a progression of his Parkinson's and I have recommended that he follow-up with his neurologist to discuss increasing his carbidopa levodopa as he has not yet done maximum dose. He can continue taking them baclofen, and I discussed the maximum doses recommended daily. He does not appear to be having any side effects from either medication. Patient states understanding and understands this is a progression of his illness. I discussed return precautions if new or worsening symptoms. Departure - Departure Disposition: 01 Home, Self Care Clinical Impression: Muscle weakness, Muscle spasm Condition: Good Instructions: Parkinson Disease Common Sx, Parkinson Disease [place] Emotions Comments: You presented with muscle weakness and spasms. This is unfortunately likely secondary to your Parkinson's disease. You are on a high dose of carbidopa levodopa at this time but it can be increased. You may talk with your neuro logist about this. You are also already on a muscle relaxer which I would like you to continue. Please continue follow-up with your neurologist and primary doctor for these symptoms. Your labs and evaluation today are otherwise stable.
[2023-01-31 20:43] VITALS: BP 168/82
== END 2023-01-31 20:43 | disposition home or self-care (01) ==
LOC: EDUNIT# → ED 19:05
DX: M62.838 Other muscle spasm (principal); M62.81 Muscle weakness (generalized); G20 Parkinson's disease
CPT/HCPCS: 36415; 80053; 81003; 83690; 83735; 85025; 99283; A9270; 81001; 87086

== ENCOUNTER 2023-06-23 12:44 | Outpatient (CLI) | payer MEDICARE, OTHER | END 2023-06-23 23:59 | disposition critical access hospital (66) | LOC: EMS 12:44 | DX: M62.89 Other specified disorders of muscle (principal) | CPT/HCPCS: A0425; A0429 ==

== ENCOUNTER 2023-06-23 13:14 | Emergency (ER) | payer MEDICARE, OTHER ==
[2023-06-23] MEDS ORDERED: BACLOFEN 10 MG TABLET PO STA (13:30)
--- NOTE | 2023-06-23 13:31 | ED Physician Documentation ---
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 He is treated with carbidopa levodopa and a naturopathic muscle relaxer. UEs have some level of muscle stiffness which at times is worse than others. Today has had pretty bad muscle stiffness in the thighs and legs such that he cannot ambulate. He has been here for this in the past, last on January 31. In the past he has had relief with the administration of baclofen. PD PAST MEDICAL HISTORY - Past Medical History Cardiovascular: High cholesterol, Hypertension, Murmur Respiratory: Shortness of breath Neuro: Parkinson's Endocrine/Autoimmune: None GI: None : Other HEENT: Chronic hearing loss, Chronic vision loss Psych: None Musculoskeletal: Osteoarthritis, Chronic back pain, Other Derm: None - Past Surgical History Past Surgical History: Yes General: Colonoscopy Ortho: Shoulder arthroplasty, Spine surgery, Other Cardiovascular: Other HEENT: Tonsil/Adenoidectomy - Present Medications Home Medications: Ambulatory Orders Medication Instructions Recorded Confirmed Baclofen [Lioresal] 10 mg PO TID 01/22/21 02/22/21 Escitalopram [Lexapro] 10 mg PO DAILY 01/22/21 02/22/21 Pravastatin Sodium [Pravachol] 20 mg PO DAILY 01/22/21 02/22/21 Aspirin EC [Ecotrin] 81 mg PO DAILY 02/07/21 02/22/21 Carbidopa/Levodopa 25/100 [Sinemet 2 tab PO .7XD 02/07/21 01/06/23 25 mg/100 mg] Cyclobenzaprine HCl 5 - 10 mg PO Q8HR PRN 02/07/21 02/22/21 Lisinopril [Zestril] 20 mg PO DAILY 02/07/21 02/22/21 Metoprolol Tartrate [Lopressor] 25 mg PO BID 02/07/21 02/22/21 Pramipexole Di-HCl [Mirapex] 0.75 mg PO .7XD 02/07/21 01/06/23 Docusate Sodium [Dulcolax Stool 100 mg PO PRN PRN 02/11/21 02/22/21 Softener] Ferrous Sulfate 325 mg PO DAILY 02/11/21 02/22/21 Mv-Min/Folic/K1/Lycopen/Lutein 1 tab PO DAILY 02/11/21 01/06/23 [Centrum Silver Men Tablet] HYDROcod/ACETAM 5/325 [[place] 5/325] 1 - 2 tablet PO Q6H PRN #10 tablet 10/14/22 Baclofen [Lioresal] 10 mg PO TID #30 tablet 01/06/23 methocarbamoL [Methocarbamol] 1,000 mg PO TID 01/06/23 01/06/23 Baclofen [Lioresal] 10 mg PO TID #90 tablet 06/23/23 - Allergies Allergies/Adverse Reactions: Allergies Allergy/AdvReac Type Severity Reaction Status Date / Time Sulfa (Sulfonamide Allergy Rash Verified 06/23/23 13:33 Antibiotics) - Social History Does the pt smoke?: No Smoking Status: Never smoker Does the pt drink ETOH?: No Does the pt have substance abuse?: Yes - Immunizations Immunizations are current?: Yes - POLST Patient has POLST: No PD ED PE NORMAL - Vitals Vital signs reviewed: Yes - General General: Alert and oriented X 3, No acute distress - Back Back: No CVA TTP, No spinal TTP - Extremities Extremities: Other (His legs, both the thighs and calves are quite stiff such that neither I nor he can range them. Passive range of motion of the upper extremities is normal.) - Neuro Neuro: Alert and oriented X 3 Eye Opening: Spontaneous Motor: Obeys Commands Verbal: Oriented GCS Score: 15 Results - Vitals Vitals: Vital Signs - 24 hr 06/23/23 13:30 Temperature 36.6 C Heart Rate 82 Respiratory 16 Rate Blood Pressure 158/107 H O2 Saturation 95 Oxygen O2 Source Room air PD Medical Decision Making - ED course ED course: 73-year-old gentleman with Parkinson's presents with spastic issue. This is happened before and is actually more of a chronic issue but today is a particularly bad day for him such that he is nonfunctional. He was given a dose of baclofen which was quite helpful but not quite back to baseline and after milligram of IV lorazepam he was back to baseline Departure - Departure Disposition: 01 Home, Self Care Clinical Impression: Spasticity Condition: Good Record reviewed to determine appropriate education?: Yes Prescriptions: Baclofen [Lioresal] 10 mg PO TID #90 tablet Comments: Talk with either your primary care physician and/or your neurologist about continuing on the baclofen. There are patients who are of course on this daily as an ongoing treatment for spasticity related to Parkinson's and other issues. Return for new or worsening symptoms. Forms: PCP List
[2023-06-23] MEDS ORDERED: LORazepam 2 MG/ML VIAL IVP STA (14:35)
[2023-06-23 15:24] VITALS: BP 140/90; O2SAT 96
== END 2023-06-23 15:22 | disposition home or self-care (01) ==
LOC: EDUNIT# → ED 13:14
DX: G20 Parkinson's disease (principal); I10 Essential (primary) hypertension; E78.00 Pure hypercholesterolemia, unspecified; Z79.899 Other long term (current) drug therapy; Z79.82 Long term (current) use of aspirin
CPT/HCPCS: 96374; 99283

== ENCOUNTER 2023-06-25 03:28 | Outpatient (CLI) | payer MEDICARE, OTHER | END 2023-06-25 03:29 | disposition EMS.NT | LOC: EMS 03:28 | DX: R46.4 Slowness and poor responsiveness (principal) ==

== ENCOUNTER 2023-08-10 17:25 | Emergency (ER) | payer MEDICARE, OTHER ==
[2023-08-10 17:36] VITALS: BP 158/74
[2023-08-10] MEDS ORDERED: LORazepam 2 MG/ML VIAL IM STA (17:39)
--- NOTE | 2023-08-10 17:40 | ED Physician Documentation ---
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 I saw him for similar episode in June and he improved with lorazepam. Now he is on chronic baclofen and he took 4 doses today but his legs been particularly stiff today and painful. PD PAST MEDICAL HISTORY - Past Medical History Cardiovascular: High cholesterol, Hypertension, Murmur Respiratory: Shortness of breath Neuro: Parkinson's Endocrine/Autoimmune: None GI: None : Other HEENT: Chronic hearing loss, Chronic vision loss Psych: None Musculoskeletal: Osteoarthritis, Chronic back pain, Other Derm: None - Past Surgical History Past Surgical History: Yes General: Colonoscopy Ortho: Shoulder arthroplasty, Spine surgery, Other Cardiovascular: Other HEENT: Tonsil/Adenoidectomy - Present Medications Home Medications: Ambulatory Orders Medication Instructions Recorded Confirmed Baclofen [Lioresal] 10 mg PO TID 01/22/21 02/22/21 Escitalopram [Lexapro] 10 mg PO DAILY 01/22/21 02/22/21 Pravastatin Sodium [Pravachol] 20 mg PO DAILY 01/22/21 02/22/21 Aspirin EC [Ecotrin] 81 mg PO DAILY 02/07/21 02/22/21 Carbidopa/Levodopa 25/100 [Sinemet 2 tab PO .7XD 02/07/21 01/06/23 25 mg/100 mg] Cyclobenzaprine HCl 5 - 10 mg PO Q8HR PRN 02/07/21 02/22/21 Lisinopril [Zestril] 20 mg PO DAILY 02/07/21 02/22/21 Metoprolol Tartrate [Lopressor] 25 mg PO BID 02/07/21 02/22/21 Pramipexole Di-HCl [Mirapex] 0.75 mg PO .7XD 02/07/21 01/06/23 Docusate Sodium [Dulcolax Stool 100 mg PO PRN PRN 02/11/21 02/22/21 Softener] Ferrous Sulfate 325 mg PO DAILY 02/11/21 02/22/21 Mv-Min/Folic/K1/Lycopen/Lutein 1 tab PO DAILY 02/11/21 01/06/23 [Centrum Silver Men Tablet] HYDROcod/ACETAM 5/325 [[place] 5/325] 1 - 2 tablet PO Q6H PRN #10 tablet 10/14/22 Baclofen [Lioresal] 10 mg PO TID #30 tablet 01/06/23 methocarbamoL [Methocarbamol] 1,000 mg PO TID 01/06/23 01/06/23 Baclofen [Lioresal] 10 mg PO TID #90 tablet 06/23/23 - Allergies Allergies/Adverse Reactions: Allergies Allergy/AdvReac Type Severity Reaction Status Date / Time Sulfa (Sulfonamide Allergy Rash Verified 06/23/23 13:33 Antibiotics) - Social History Does the pt smoke?: No Smoking Status: Never smoker Does the pt drink ETOH?: No Does the pt have substance abuse?: Yes - Immunizations Immunizations are current?: Yes - POLST Patient has POLST: No PD ED PE NORMAL - Vitals Vital signs reviewed: Yes - General General: Alert and oriented X 3, No acute distress - Extremities Extremities: No deformity, No tenderness to palpate, Normal ROM s pain, No edema, No calf tenderness / cord - Neuro Neuro: Alert and oriented X 3, Normal speech Results - Vitals Vitals: Vital Signs - 24 hr 08/10/23 17:31 Temperature 36.8 C Heart Rate 81 Respiratory 20 Rate Blood Pressure 158/74 H Oxygen O2 Source Room air PD Medical Decision Making - ED course ED course: 73-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 Initially he was administered 1 mg of IM lorazepam which has helped in the past with only minimal relief. This was followed subsequently by IM Dilaudid and Toradol with reasonable relief of his spasms. Departure - Departure Disposition: 01 Home, Self Care Clinical Impression: Spasticity Condition: Stable Record reviewed to determine appropriate education?: Yes Instructions: Parkinson Disease Home Safety Comments: Continue current medications, reasonable to loop in your neurologist with current symptomatology. Return if worse. Do not drink or drive tonight. Forms: PCP List
[2023-08-10] MEDS ORDERED: HYDROmorphone 1 MG/ML CARPUJECT IM STA (18:21)
[2023-08-10] MEDS ORDERED: KETOROLAC 60 MG/2 ML VIAL IM STA (18:52)
[2023-08-10] MEDS ORDERED: BACLOFEN 10 MG TABLET PO STA (19:27)
== END 2023-08-10 21:15 | disposition home or self-care (01) ==
LOC: ED 17:25
DX: R25.2 Cramp and spasm (principal); I10 Essential (primary) hypertension
CPT/HCPCS: 96372; 99283; A9270; J1170; J2060

== ENCOUNTER 2023-08-16 11:31 | Outpatient (CLI) | payer MEDICARE, OTHER | END 2023-08-16 11:32 | disposition critical access hospital (66) | LOC: EMS 11:31 | DX: M79.605 Pain in left leg (principal); M79.604 Pain in right leg; R29.898 Other symptoms and signs involving the musculoskeletal system | CPT/HCPCS: A0425; A0429 ==

== ENCOUNTER 2023-08-16 11:58 | Emergency (ER) | payer MEDICARE, OTHER ==
[2023-08-16] MEDS ORDERED: HYDROmorphone 1 MG/ML CARPUJECT IVP STA (12:05)
[2023-08-16] MEDS ORDERED: LORazepam 2 MG/ML VIAL IVP STA (12:05)
--- NOTE | 2023-08-16 12:22 | ED Physician Documentation ---
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 He is pending a visit to [facility] in a few days for a new therapy for this but here with an exacerbation of his chronic leg pain. He takes baclofen at home for it, nothing else. His emergency department use recently has been increasing for this issue. What was a every other month issue is now more monthly or even weekly. PD PAST MEDICAL HISTORY - Past Medical History Cardiovascular: High cholesterol, Hypertension, Murmur Respiratory: Shortness of breath Neuro: Parkinson's Endocrine/Autoimmune: None GI: None : Other HEENT: Chronic hearing loss, Chronic vision loss Psych: None Musculoskeletal: Osteoarthritis, Chronic back pain, Other Derm: None - Past Surgical History Past Surgical History: Yes General: Colonoscopy Ortho: Shoulder arthroplasty, Spine surgery, Other Cardiovascular: Other HEENT: Tonsil/Adenoidectomy - Present Medications Home Medications: Ambulatory Orders Medication Instructions Recorded Confirmed Baclofen [Lioresal] 10 mg PO TID 01/22/21 02/22/21 Escitalopram [Lexapro] 10 mg PO DAILY 01/22/21 02/22/21 Pravastatin Sodium [Pravachol] 20 mg PO DAILY 01/22/21 02/22/21 Aspirin EC [Ecotrin] 81 mg PO DAILY 02/07/21 02/22/21 Carbidopa/Levodopa 25/100 [Sinemet 2 tab PO .7XD 02/07/21 01/06/23 25 mg/100 mg] Cyclobenzaprine HCl 5 - 10 mg PO Q8HR PRN 02/07/21 02/22/21 Lisinopril [Zestril] 20 mg PO DAILY 02/07/21 02/22/21 Metoprolol Tartrate [Lopressor] 25 mg PO BID 02/07/21 02/22/21 Pramipexole Di-HCl [Mirapex] 0.75 mg PO .7XD 02/07/21 01/06/23 Docusate Sodium [Dulcolax Stool 100 mg PO PRN PRN 02/11/21 02/22/21 Softener] Ferrous Sulfate 325 mg PO DAILY 02/11/21 02/22/21 Mv-Min/Folic/K1/Lycopen/Lutein 1 tab PO DAILY 02/11/21 01/06/23 [Centrum Silver Men Tablet] HYDROcod/ACETAM 5/325 [[place] 5/325] 1 - 2 tablet PO Q6H PRN #10 tablet 10/14/22 Baclofen [Lioresal] 10 mg PO TID #30 tablet 01/06/23 methocarbamoL [Methocarbamol] 1,000 mg PO TID 01/06/23 01/06/23 Baclofen [Lioresal] 10 mg PO TID #90 tablet 06/23/23 HYDROcod/ACETAM 5/325 [[place] 5/325] 1 - 2 tab PO Q6H PRN #15 tablet 08/16/23 Pramipexole [Mirapex] 0.25 mg PO TID #30 tablet 08/16/23 - Allergies Allergies/Adverse Reactions: Allergies Allergy/AdvReac Type Severity Reaction Status Date / Time Sulfa (Sulfonamide Allergy Rash Verified 06/23/23 13:33 Antibiotics) - Social History Does the pt smoke?: No Smoking Status: Never smoker Does the pt drink ETOH?: No Does the pt have substance abuse?: Yes - Immunizations Immunizations are current?: Yes - POLST Patient has POLST: No PD ED PE NORMAL - Vitals Vital signs reviewed: Yes - General General: Alert and oriented X 3, No acute distress - Back Back: No CVA TTP, No spinal TTP - Derm Derm: Normal color, Warm and dry - Extremities Extremities: Other (Left leg is swollen with good pedal pulses and perfusion. He states the swelling is chronic. He has mild pain with flexion at the hip.) - Neuro Neuro: Alert and oriented X 3, Normal speech Results - Vitals Vitals: Vital Signs - 24 hr 08/16/23 08/16/23 08/16/23 12:08 13:17 13:46 Temperature 36.8 C Heart Rate 78 79 81 Respiratory 18 17 15 Rate Blood Pressure 118/73 180/103 H 154/89 H O2 Saturation 96 96 92 Oxygen O2 Source Room air - Labs Labs: Laboratory Tests 08/16/23 12:13 Sodium 138 Potassium 4.1 Chloride 105 Carbon Dioxide 27 Anion Gap 6.0 BUN 34 H Creatinine 0.8 Estimated GFR (MDRD) 95 Glucose 96 Calcium 9.7 PD Medical Decision Making - ED course ED course: 73-year-old gentleman presents with exacerbation of leg pain probably related to Parkinson's. Has specialty appointment in a few days but needed some relief before then. After 1 mg each of IV Dilaudid and Ativan he was feeling much better. He is feeling somewhat hopeless with the progression of his disease though but he has appropriate follow-up. Departure - Departure Disposition: 01 Home, Self Care Clinical Impression: Spasticity Condition: Good Record reviewed to determine appropriate education?: Yes Prescriptions: Pramipexole [Mirapex] 0.25 mg PO TID #30 tablet HYDROcod/ACETAM 5/325 [[place] 5/325] 1 - 2 tab PO Q6H PRN #15 tablet PRN Reason: Pain Comments: I sent the prescriptions electronically to [facility] in [place]. Try to keep your appointments with [facility] as scheduled. Return for new or worsening symptoms. I am prescribing a short course of narcotic pain medication for you. These are potentially dangerous and addictive medications that should be used carefully. These medications may constipate you. Take an [id number] stool softener (docusate) twice daily with plenty of water while taking these medications. If you go 24 hours without a bowel movement, take [id number] miralax, per package instructions. Do not drink or drive while taking these medications. If you received narcotic or sedating medications while in the emergency department, do not drive for 24 hours. Store this medication in a safe, secure place and out of reach of children. It is a violation of federal law to give or sell this medication to another person or to use in a manner other than prescribed. The ED will not refill narcotic prescriptions, including prescriptions lost or stolen. To dispose of unwanted medications: 1. [facility] provides a drop box for medication in pill form only (no liquids) 8:00 am to 4:30 p.m. Thursday-Thursday in the lobby of the [facility], [address] [place] [address]. Empty pills into ziplock bag before disposal. Call [phone] for information. 2.[employer] is a free service available to all [facility] residents. Go to [email or web address] Note that many narcotic pain relievers also contain Tylenol/acetaminophen. Please ensure that your total dose of acetaminophen from all sources does not exceed 3 g (3000 mg) per day. Forms: PCP List
[2023-08-16 12:33] LABS: CALCIUM 9.7 mg/dL (8.5-10.3); CREATININE 0.8 mg/dL (0.6-1.3); POTASSIUM 4.1 mmol/L (3.5-4.5)
[2023-08-16 14:51] VITALS: BP 164/92; O2SAT 93
== END 2023-08-16 14:47 | disposition home or self-care (01) ==
LOC: EDUNIT# → ED 11:58
DX: G20.A1 Parkinson's disease without dyskinesia, without mention of fluctuations (principal)
CPT/HCPCS: 36415; 80048; 96374; 96375; 99283; J1170; J2060

== ENCOUNTER 2023-08-23 22:10 | Outpatient (CLI) | payer MEDICARE, OTHER | END 2023-08-23 22:11 | disposition critical access hospital (66) | LOC: EMS 22:10 | DX: R44.8 Other symptoms and signs involving general sensations and perceptions (principal); R26.2 Difficulty in walking, not elsewhere classified | CPT/HCPCS: A0425; A0429 ==

== ENCOUNTER 2023-08-23 22:34 | Emergency (ER) | payer MEDICARE, OTHER ==
--- NOTE | 2023-08-23 22:44 | ED Physician Documentation ---
History of Present Illness - Stated complaint Stated Complaint: GEN WEAKNESS - Chief complaint Chief Complaint: General - Additonal information Additional information: Patient 73-year-old male presenting with generalized weakness and spasticity of his lower extremities. Past medical significant for Parkinson's disease. Reports takes Sinemet, baclofen, hydrocodone among other medications. Was able to ambulate this morning however has had increasing rigidity in his lower extremities for the last several hours. Reports he has never had symptoms that of this severe. Denies fever, chills, back pain, trauma.Follows with Dr. Frost, neurology at [facility]. Review of Systems Constitutional: denies: Fever Eyes: denies: Loss of vision Ears: denies: Loss of hearing Nose: denies: Rhinorrhea / runny nose Throat: denies: Dental pain / toothache Cardiac: denies: Chest pain / pressure Respiratory: denies: Dyspnea GI: denies: Abdominal Pain, Vomiting : denies: Dysuria Skin: denies: Rash Musculoskeletal: denies: Neck pain Neurologic: reports: Generalized weakness, Focal weakness PD PAST MEDICAL HISTORY - Past Medical History Cardiovascular: High cholesterol, Hypertension, Murmur Respiratory: Shortness of breath Neuro: Parkinson's Endocrine/Autoimmune: None GI: None : Other HEENT: Chronic hearing loss, Chronic vision loss Psych: None Musculoskeletal: Osteoarthritis, Chronic back pain, Other Derm: None - Past Surgical History Past Surgical History: Yes General: Colonoscopy Ortho: Shoulder arthroplasty, Spine surgery, Other Cardiovascular: Other HEENT: Tonsil/Adenoidectomy - Present Medications Home Medications: Ambulatory Orders Medication Instructions Recorded Confirmed Baclofen [Lioresal] 10 mg PO TID 01/22/21 02/22/21 Escitalopram [Lexapro] 10 mg PO DAILY 01/22/21 02/22/21 Pravastatin Sodium [Pravachol] 20 mg PO DAILY 01/22/21 02/22/21 Aspirin EC [Ecotrin] 81 mg PO DAILY 02/07/21 02/22/21 Carbidopa/Levodopa 25/100 [Sinemet 2 tab PO .7XD 02/07/21 01/06/23 25 mg/100 mg] Cyclobenzaprine HCl 5 - 10 mg PO Q8HR PRN 02/07/21 02/22/21 Lisinopril [Zestril] 20 mg PO DAILY 02/07/21 02/22/21 Metoprolol Tartrate [Lopressor] 25 mg PO BID 02/07/21 02/22/21 Pramipexole Di-HCl [Mirapex] 0.75 mg PO .7XD 02/07/21 01/06/23 Docusate Sodium [Dulcolax Stool 100 mg PO PRN PRN 02/11/21 02/22/21 Softener] Ferrous Sulfate 325 mg PO DAILY 02/11/21 02/22/21 Mv-Min/Folic/K1/Lycopen/Lutein 1 tab PO DAILY 02/11/21 01/06/23 [Centrum Silver Men Tablet] HYDROcod/ACETAM 5/325 [[place] 5/325] 1 - 2 tablet PO Q6H PRN #10 tablet 10/14/22 Baclofen [Lioresal] 10 mg PO TID #30 tablet 01/06/23 methocarbamoL [Methocarbamol] 1,000 mg PO TID 01/06/23 01/06/23 Baclofen [Lioresal] 10 mg PO TID #90 tablet 06/23/23 HYDROcod/ACETAM 5/325 [[place] 5/325] 1 - 2 tab PO Q6H PRN #15 tablet 08/16/23 Pramipexole [Mirapex] 0.25 mg PO TID #30 tablet 08/16/23 - Allergies Allergies/Adverse Reactions: Allergies Allergy/AdvReac Type Severity Reaction Status Date / Time Sulfa (Sulfonamide Allergy Rash Verified 08/23/23 22:39 Antibiotics) - Social History Does the pt smoke?: No Smoking Status: Never smoker Does the pt drink ETOH?: No Does the pt have substance abuse?: Yes - Immunizations Immunizations are current?: Yes - POLST Patient has POLST: No PD ED PE NORMAL - Vitals Vital signs reviewed: Yes - General General: Alert and oriented X 3, Other - HEENT HEENT: Atraumatic, PERRL, EOMI, Ears normal, Moist mucous membranes, Pharynx benign - Neck Neck: Supple, no meningeal sign, No bony TTP, No adenopathy, Thyroid normal, No JVD - Cardiac Cardiac: RRR, No murmur, No gallop, Strong equal pulses - Respiratory Respiratory: No respiratory distress, Clear bilaterally - Abdomen Abdomen: Normal bowel sounds, Soft, Non tender, Non distended, No organomegaly - Male Male : Deferred - Extremities Extremities: Other (Patient notable weakness and some rigidity in his lower extremities with associated muscle wasting.) Results - Vitals Vitals: Vital Signs - 24 hr 08/23/23 08/23/23 08/24/23 22:39 22:42 00:56 Temperature 36.5 C 36.5 C Heart Rate 80 80 73 Respiratory 16 16 16 Rate Blood Pressure 165/89 H 165/89 H 153/107 H O2 Saturation 96 96 97 08/24/23 08/24/23 08/24/23 01:00 03:03 05:14 Temperature 36.7 C Heart Rate 69 59 L 60 Respiratory 12 12 15 Rate Blood Pressure 163/95 H 128/79 147/92 H O2 Saturation 94 94 99 Oxygen O2 Source Room air - Labs Labs: Laboratory Tests 08/23/23 08/23/23 22:50 22:50 WBC 7.4 RBC 5.67 Hgb 17.4 Hct 54.8 H MCV 96.6 H MCH 30.7 MCHC 31.8 L RDW 12.8 Plt Count 168 MPV 10.5 Neut # (Auto) 5.6 Lymph # (Auto) 0.9 L Clay # (Auto) 0.7 Eos # (Auto) 0.1 Baso # (Auto) 0.0 Absolute Nucleated RBC 0.00 Nucleated RBC % 0.0 Sodium 138 Potassium 3.9 Chloride 104 Carbon Dioxide 28 Anion Gap 6.0 BUN 28 H Creatinine 0.8 Estimated GFR (MDRD) 95 Glucose 89 Calcium 10.0 Total Bilirubin 0.9 AST 13 ALT 3 L Alkaline Phosphatase 95 Total Creatine Kinase 123 Total Protein 7.6 Albumin 4.6 Globulin 3.0 Albumin/Globulin Ratio 1.5 Lipase 90 H PD Medical Decision Making - ED course Complexity details: reviewed old records, reviewed results, re-evaluated patient, considered differential, d/w patient, d/w building energy consultant ED course: Patient is a 73-year-old male presenting to the emergency department with lower extremity weakness. Afebrile, hemodynamically stable. He is brought in by EMS. This is in the setting of known history of Parkinson's disease as well as multiple frequent evaluations for lower extremity pain. Notably he endorses for lower extremity weakness which he states is atypical for him and not similar to previous events he has had in the past. He has notable weakness in his lower extremities, particularly at the feet with dorsiflexion and plantarflexion. His pulses are easily palpable in the lower extremities. He has normal sensation in the dermatomes of his lower extremities. He denies any falls, trauma, back pain, saddle paresthesia, loss of bowel or bladder control. Labs obtained are all generally within normal limits or nonactionable. In the past he has responded well to hydromorphone and I gave him a dose of Dilaudid here in the emergency department as well as one of his baclofen and diazepam without significant relief. On reevaluation he continued to endorse for lower extremity weakness with ongoing concern that he has never experienced symptoms like these in the past. I [facility] at [facility] with whom the patient follows. Specifically I discussed his care with Dr. Sanchez. Recommendation at that time was for careful monitoring and MR of his T and L- spine as patient does have history of cervical myelopathy. This has been ordered but is unavailable at this time. Per neurology patient also recommends continuing his current Sinemet regimen. This consists of 325-100 tabs given 7 times daily. These are specifically given 5 AM, 8 AM, 11 AM, 2 PM, 5 PM, 8 PM, 11 PM. The patient also has a prescribed long-acting carbidopa which he takes twice daily as well as tamipexal which he takes daily. These medications are not Available at our pharmacy formulary however patient did bring his medications with him and he was instructed to continue to take these. Will be signing out the patient to the oncoming physician, please see their documentation for further detail. Departure - Departure Forms: PCP List
[2023-08-23] MEDS ORDERED: ONDANSETRON 4 MG/2 ML VIAL IVP STA (22:48)
[2023-08-23] MEDS ORDERED: HYDROmorphone 1 MG/ML CARPUJECT IVP STA (22:48)
[2023-08-23 22:55] LABS: BASOPHILS % (AUTO) 0.4 %; EOSINOPHILS # (AUTO) 0.1 10^3/uL (0.0-0.7); EOSINOPHILS % (AUTO) 1.4 %; HCT - HEMATOCRIT 54.8 % (42.0-52.0); HGB - HEMOGLOBIN 17.4 g/dL (14.0-18.0); LYMPHOCYTES # (AUTO) 0.9 10^3/uL (1.5-3.5); LYMPHOCYTES % (AUTO) 12.7 %; MEAN CORPUSCULAR HEMOGLOBIN 30.7 pg (27.0-31.0); MEAN CORPUSCULAR HGB CONC 31.8 g/dL (32.0-36.0); MEAN CORPUSCULAR VOLUME 96.6 fL (80.0-94.0); MEAN PLATELET VOLUME 10.5 fL (7.4-11.4); MONOCYTES # (AUTO) 0.7 10^3/uL (0.0-1.0); MONOCYTES % (AUTO) 9.9 %; NEUTROPHILS # (AUTO) 5.6 10^3/uL (1.5-6.6); NEUTROPHILS % (AUTO) 75.2 %; PLT - PLATELET COUNT 168 10^3/uL (130-450); RED BLOOD COUNT 5.67 10^6/uL (4.70-6.10); RED CELL DISTRIBUTION WIDTH 12.8 % (12.0-15.0); WHITE BLOOD COUNT 7.4 x10^3/uL (4.8-10.8)
[2023-08-23] MEDS ORDERED: BACLOFEN 10 MG TABLET PO SCH (23:00)
[2023-08-23] MEDS: BACLOFEN 10 MG TABLET PO SCH (23:05)
[2023-08-23 23:12] LABS: ALBUMIN 4.6 g/dL (3.2-5.5); ALBUMIN/GLOBULIN RATIO 1.5 (1.0-2.2); BILIRUBIN,TOTAL 0.9 mg/dL (0.2-1.0); CREATININE 0.8 mg/dL (0.6-1.3); POTASSIUM 3.9 mmol/L (3.5-4.5); TOTAL PROTEIN 7.6 g/dL (6.4-8.9)
[2023-08-24] MEDS ORDERED: diazePAM 5 MG TABLET PO STA (00:04)
[2023-08-24] MEDS ORDERED: CARBIDOPA/LEVODOPA 25 MG/100 MG TABLET PO ONE (01:00)
[2023-08-24] MEDS: BACLOFEN 10 MG TABLET PO SCH ×3 (05:28→20:46)
[2023-08-24] MEDS ORDERED: GADOTERATE MEGLUMINE 10 MMOL/20 ML VIAL ONE (07:53)
[2023-08-24] MEDS: CARBIDOPA/LEVODOPA ER 25 MG/100 MG TABLET PO SCH ×2 (09:37→21:16)
[2023-08-24] MEDS: CARBIDOPA/LEVODOPA 25 MG/100 MG TABLET PO SCH ×6 (09:38→20:46)
--- NOTE | 2023-08-24 09:42 | MRI Report ---
PROCEDURE: THORACIC SPINE W/WO INDICATIONS: Lower Extermity Weakness CONTRAST: clariscan 20ml TECHNIQUE: Noncontrast sagittal T1 spin echo and T2 fast spin echo, sagittal STIR, axial T1 and T2 fast spin ech o through the thoracic spine. After the administration of contrast, axial and sagittal T1 spin echo with fat saturation through the thoracic spine. COMPARISON: None. FINDINGS: Image quality: Excellent. Alignment and curvature: There is normal bony alignment. Marrow: Marrow is of normal overall signal. No acute vertebral body compression fractures. Spinal cord: Visualized spinal cord is of normal signal and size, without abnormal enhancement. Paraspinous soft tissues: No paravertebral masses or abnormal enhancement. Miscellaneous: Central canal and foramina appear widely patent at all scanned levels. There is a matthew y minimal central posterior disc protrusion at T7-T8 without abutting the cord without canal stenosis . IMPRESSION: 1. Normal thoracic cord caliber and signal characteristics. No abnormal enhancement. Gadolinium. 2. No canal stenosis or foraminal stenosis. 3. Minimal central posterior disc protrusion at T7-T8, likely an incidental finding. Reviewed by: Dae Whitley MD on 08/24/2023 9:41 AM PDT Approved by: Dae Whitley MD on 08/24/2023 9:41 AM PDT Station ID: [id number]
--- NOTE | 2023-08-24 09:54 | MRI Report ---
PROCEDURE: LUMBAR SPINE W/WO INDICATIONS: Lower extermity weakness CONTRAST: clariscan 20ml TECHNIQUE: Noncontrast sagittal T1 spin echo and T2 fast spin echo, sagittal STIR, axial T1 and T2 fast spin ech o through the lumbar spine. In cases with scoliosis, additional coronal T2 fast spin echo may be per formed. After the administration of contrast, sagittal and axial T1 spin echo with fat saturation th rough the lumbar spine. COMPARISON: None. FINDINGS: Image quality: Excellent. Alignment and curvature: There is rightward scoliotic curvature. Marrow: Marrow is of normal overall signal. Prominent reactive endplate changes are present L4-5, L 5-S1. No acute vertebral body compression fractures. No suspicious marrow enhancement. Spinal cord: Conus medullaris terminates at the L1 level. Visualized spinal cord demonstrates aishwarya l signal, without suspicious enhancement. Paraspinous soft tissues: No paravertebral masses or abnormal enhancement. Multiple foci of increas ed T2 signal are present within the kidneys suggestive of cysts. There are additional areas of hypoin tense signal within the kidneys indeterminate on the basis of this exam. Discs: Moderate to severe multilevel disc desiccation most prominent at L4-5, L5-S1. T12-L1: No disc bulge or spinal stenosis. Minimal to mild left foraminal narrowing with facet and lig amentum flavum hypertrophy. L1-L2: Minimal disc bulge without spinal stenosis. [id number]-[id number] right and mild left foraminal narrowing with facet and ligamentum flavum hypertrophy. L2-L3: Mild disc bulge with mild to moderate spinal stenosis. Moderate to severe left and mild-to- moderate right foraminal narrowing with facet and ligamentum flavum hypertrophy. L3-L4: Mild disc bulge with moderate spinal stenosis. Moderate to severe left and moderate right fo raminal narrowing with facet and ligamentum flavum hypertrophy. L4-L5: Mild disc bulges superimposed posterior central protrusion with moderate spinal stenosis. Se girish right and [id number] left foraminal narrowing with nerve root flattening of the exiting ri ght L4 nerve roots. Facet and ligamentum flavum hypertrophy are present. L5-S1: Mild disc bulge with moderate spinal stenosis. Severe right and moderate to severe left fora ti narrowing with compression of the exiting right L5 nerve roots. IMPRESSION: Multilevel disc bulges. Multilevel spinal stenosis secondary to disc bulges with contributing effect of facet/ligamentum flav um arthropathy most severe at L3-4, L4-5 as well as L5-S1. Multilevel foraminal narrowing most severe at L4-5, L5-S1 secondary to facet/ligamentum flavum arthro saranya. Hypointense foci within the kidneys indeterminate on the basis of this exam. These could represent ar eas of calcification. Renal ultrasound may be obtained for further evaluation on a nonemergent basis. Reviewed by: Love Richards MD on 08/24/2023 9:52 AM PDT Approved by: Love Richards MD on 08/24/2023 9:52 AM PDT Station ID: [id number]
[2023-08-24] MEDS ORDERED: HYDROmorphone 0.5 MG/0.5 ML SYRINGE IVP STA (16:18)
[2023-08-24] MEDS ORDERED: KETOROLAC 15 MG/ML VIAL IVP STA (16:19)
--- NOTE | 2023-08-24 16:24 | ED Physician Documentation ---
ED Addendum - Addendum Addendum: 08/24/23 16:20 The patient had been seen by me on change of shift. He was awaiting MRI of the lumbar and thoracic area because of complaint of new onset leg stiffness and weakness of both legs. He does have a history of some stiffness related to Parkinson's. No recent change in medicines. He denies recent illness otherwise. He has had some decreasing ability of walking with a feeling of stiffness and so weakness but more notable in the last day or 2. He did have a MRI of the thoracic and lumbar spines without any acute abnormalities found. Nothing to account for new weakness. Again no recent cold or flu type symptoms. He had been given some baclofen to help with muscle spasming. This is a previous prescription for him. He was given his usual carbidopa levodopa doses while here. Subsequently with normal labs otherwise and normal spine MRI, the intention was to look at trying to send the patient home back to [facility]. Social work talked with the general administrator there or one of the clinical staff who is going to talk with the patient and assess the level of need and care. Alternative was whether the patient needed more residential for which social work would need to look into. Subsequent to that the patient states he was noticing some weakness of his arms as well though somewhat transiently and that is improving now. He states his legs are feeling a bit weaker 2. Consideration would be an effect of the baclofen as he feels a little sleepy as well. He is now having lower abdominal pain 2 and on palpation has some lower abdominal tenderness with some feeling of mild distention. At this point we can get a CT of the abdomen to look for other processes. He was not having abdominal pain earlier in the visit. At this point still unclear the cause of his various symptoms. Be inclined to think an exacerbation of his Parkinson's with some leg rigidity and stiffness. He is having some back pain as well and we can give another dose of pain medicine.
[2023-08-24] MEDS: SODIUM CHLORIDE 0.9% 1,000 ML IV STA ×2 (16:39→18:15)
[2023-08-24] MEDS ORDERED: GADOTERATE MEGLUMINE 10 MMOL/20 ML VIAL IVP ONE (17:17)
--- NOTE | 2023-08-24 17:50 | CT Report ---
PROCEDURE: ABDOMEN/PELVIS W INDICATIONS: general weakness; now lower abd pain CONTRAST: 100mL Omni 300 TECHNIQUE: After the administration of intravenous contrast, 5 mm thick sections acquired from the diaphragms to the symphysis. 5 mm thick coronal and sagittal reformats were acquired. For radiation dose reducti on, the following was used: automated exposure control, adjustment of mA and/or kV according to rayo ent size. COMPARISON: None FINDINGS: Image quality: Excellent. Lung bases and heart: There is a 6 mm nodule at the right base posteriorly (02/10). The heart is aishwarya l in size. Severe multivessel coronary calcifications. Bilateral gynecomastia. Moderate hiatal hernia . Liver: No solid mass. Gallbladder and biliary tree: No radiopaque stones or wall thickening. No biliary dilation. Spleen: No splenomegaly. Pancreas: No pancreatic ductal dilation. Adrenals: No adrenal nodule. Kidneys and ureters: No hydronephrosis. No renal cystic lesion which requires follow up. No solid mas s. Bilateral renal simple cysts. Bowel and peritoneum: No bowel distension. No pathologic free fluid. Moderate burden of stool through out the colon. Normal appendix. Lymph nodes: No central or retroperitoneal adenopathy. Vessels: No infrarenal aortic aneurysm. Extensive atherosclerotic vascular calcifications. PELVIS Reproductive organs: Unremarkable. Bladder: No abnormal wall thickening, accounting for underdistension. Pelvic lymph nodes: No pelvic adenopathy by size criteria. Bones: No aggressive osseous abnormality. Degenerative changes of the spine. Decreased osseous minera lization. Other: No significant ventral or inguinal hernia. IMPRESSION: 1.No cause for patient's symptoms is identified. 2.Moderate burden of stool throughout the colon, correlate for constipation. 3.There is a 6 mm nodule of the right lung base. Per Fleischner criteria, if the patient is low risk, no follow-up is necessary. If patient is high risk, one year follow-up is recommended. 4.Moderate hiatal hernia. 5.Extensive atherosclerotic vascular calcifications and severe multivessel coronary artery calcificat ions. Reviewed by: Chris Liu MD on 08/24/2023 5:49 PM PDT Approved by: Chris Liu MD on 08/24/2023 5:49 PM PDT Station ID: [id number]
[2023-08-24] MEDS ORDERED: LACTULOSE 10 GM /15 ML UDC PO STA (17:53)
[2023-08-24] MEDS ORDERED: DOCUSATE SODIUM 100 MG CAPSULE PO STA (17:53)
[2023-08-24] MEDS ORDERED: LORazepam 2 MG/ML VIAL IVP STA (19:35)
[2023-08-25] MEDS: CARBIDOPA/LEVODOPA 25 MG/100 MG TABLET PO SCH ×5 (00:31→11:48)
[2023-08-25] MEDS ORDERED: iohexoL-300 100 ML VIAL IVP ONE (01:46)
[2023-08-25] MEDS: BACLOFEN 10 MG TABLET PO SCH (06:20)
[2023-08-25] MEDS: CARBIDOPA/LEVODOPA ER 25 MG/100 MG TABLET PO SCH (09:42)
--- NOTE | 2023-08-25 09:58 | ED Physician Documentation ---
ED Addendum - Addendum Addendum: 08/25/23 09:58 The patient had stayed again overnight due to feeling of leg weakness. He been using his arms well. He had had some abdominal pain yesterday and had a CT scan which showed just some constipation but no acute reason for abdominal pain. This seems to be improved last night and today. He was given some stool softener. He is still having increased stiffness/rigidity seemingly related to his Parkinson's. I could try contacting his neurologist to see if there is any change in medicines. Otherwise social work did talk with him again. He is not looking at usp placement. [facility] personnel came yesterday and talked with him and said they would be able to increase care for him. At this point would be looking at discharge home back to [facility].
[2023-08-25] MEDS ORDERED: HYDROmorphone 0.5 MG/0.5 ML SYRINGE IVP STA (10:29)
[2023-08-25] MEDS ORDERED: GABAPENTIN 100 MG CAPSULE PO STA (11:30)
[2023-08-25 11:35] VITALS: BP 163/93; O2SAT 93
== END 2023-08-25 12:49 | disposition home or self-care (01) ==
LOC: EDUNIT# → ED 22:34
DX: M51.26 Other intervertebral disc displacement, lumbar region (principal); I10 Essential (primary) hypertension; G20.A1 Parkinson's disease without dyskinesia, without mention of fluctuations
CPT/HCPCS: 36415; 80053; 82550; 83690; 83735; 85025; 96374; 96375; 96376; 99284

== ENCOUNTER 2023-08-25 21:46 | Outpatient (CLI) | payer MEDICARE, OTHER | END 2023-08-25 23:59 | disposition critical access hospital (66) | LOC: EMS 21:46 | DX: M79.605 Pain in left leg (principal) | CPT/HCPCS: A0425; A0429 ==

== ENCOUNTER 2023-08-25 22:11 | Emergency (ER) | payer MEDICARE, OTHER ==
[2023-08-25] MEDS ORDERED: HYDROmorphone 1 MG/ML CARPUJECT IM STA (22:29)
--- NOTE | 2023-08-25 22:58 | ED Physician Documentation ---
History of Present Illness - Stated complaint Stated Complaint: L LEG PX - Chief complaint Chief Complaint: Ext Problem - History obtained from History obtained from: Patient - Additonal information Additional information: The patient returns to the emergency department for chief complaint of left leg discomfort. He states that he was "just about asleep" when he had a left leg twitch and because there is nothing for his leg to brace against, his leg ended up jerking out to the side. He states that he has had "soreness" in his anterior thigh since. He points to the proximal aspect as being the place where it seems to hurt the most. The patient was not injured in any way. He has a history of Parkinson's disease and chronic episodes of left leg pain for which he was in the emergency department for extensive testing until approximately 1300 today. The patient was sent back to [facility] and started on gabapentin as per his Parkinson's neurologist instructions. The patient states he took a dose of gabapentin at about 45 minutes and 25 minutes before calling EMS. No other complaints at this time. PD PAST MEDICAL HISTORY - Past Medical History Cardiovascular: High cholesterol, Hypertension, Murmur Respiratory: Shortness of breath Neuro: Parkinson's Endocrine/Autoimmune: None GI: None : Other HEENT: Chronic hearing loss, Chronic vision loss Psych: None Musculoskeletal: Osteoarthritis, Chronic back pain, Other Derm: None - Past Surgical History Past Surgical History: Yes General: Colonoscopy Ortho: Shoulder arthroplasty, Spine surgery, Other Cardiovascular: Other HEENT: Tonsil/Adenoidectomy - Present Medications Home Medications: Ambulatory Orders Medication Instructions Recorded Confirmed Baclofen [Lioresal] 10 mg PO TID 01/22/21 02/22/21 Escitalopram [Lexapro] 10 mg PO DAILY 01/22/21 02/22/21 Pravastatin Sodium [Pravachol] 20 mg PO DAILY 01/22/21 02/22/21 Aspirin EC [Ecotrin] 81 mg PO DAILY 02/07/21 02/22/21 Carbidopa/Levodopa 25/100 [Sinemet 2 tab PO .7XD 02/07/21 01/06/23 25 mg/100 mg] Cyclobenzaprine HCl 5 - 10 mg PO Q8HR PRN 02/07/21 02/22/21 Lisinopril [Zestril] 20 mg PO DAILY 02/07/21 02/22/21 Metoprolol Tartrate [Lopressor] 25 mg PO BID 02/07/21 02/22/21 Pramipexole Di-HCl [Mirapex] 0.75 mg PO .7XD 02/07/21 01/06/23 Docusate Sodium [Dulcolax Stool 100 mg PO PRN PRN 02/11/21 02/22/21 Softener] Ferrous Sulfate 325 mg PO DAILY 02/11/21 02/22/21 Mv-Min/Folic/K1/Lycopen/Lutein 1 tab PO DAILY 02/11/21 01/06/23 [Centrum Silver Men Tablet] HYDROcod/ACETAM 5/325 [Bishop 5/325] 1 - 2 tablet PO Q6H PRN #10 tablet 10/14/22 Baclofen [Lioresal] 10 mg PO TID #30 tablet 01/06/23 methocarbamoL [Methocarbamol] 1,000 mg PO TID 01/06/23 01/06/23 Baclofen [Lioresal] 10 mg PO TID #90 tablet 06/23/23 HYDROcod/ACETAM 5/325 [Bishop 5/325] 1 - 2 tab PO Q6H PRN #15 tablet 08/16/23 Pramipexole [Mirapex] 0.25 mg PO TID #30 tablet 08/16/23 Gabapentin [Neurontin] 300 mg PO HS #20 cap 08/25/23 Alprazolam [Xanax] 0.25 mg PO Q6H PRN #30 tablet 08/30/23 - Allergies Allergies/Adverse Reactions: Allergies Allergy/AdvReac Type Severity Reaction Status Date / Time Sulfa (Sulfonamide Allergy Rash Verified 08/25/23 22:26 Antibiotics) - Social History Does the pt smoke?: No Smoking Status: Never smoker Does the pt drink ETOH?: No Does the pt have substance abuse?: Yes - Immunizations Immunizations are current?: Yes - POLST Patient has POLST: No PD ED PE NORMAL - Vitals Vital signs reviewed: Yes - General General: Alert and oriented X 3, No acute distress, Well developed/nourished - HEENT HEENT: Atraumatic, PERRL, EOMI, Moist mucous membranes - Neck Neck: Supple, no meningeal sign - Cardiac Cardiac: RRR, No murmur - Respiratory Respiratory: No respiratory distress, Clear bilaterally - Abdomen Abdomen: Soft, Non tender, Non distended - Derm Derm: Normal color, Warm and dry, No rash - Extremities Extremities: No deformity, Other (Tenderness to palpation over the left anterior superior quadriceps area. No swelling, deformity, or other abnormality on exam.) - Neuro Neuro: Alert and oriented X 3, No motor deficit, No sensory deficit - Psych Psych: Normal mood, Normal affect Results - Vitals Vitals: Oxygen O2 Source Room air PD Medical Decision Making - ED course Complexity details: reviewed old records, reviewed results, re-evaluated patient, considered differential, d/w patient ED course: I discussed with the patient, after reviewing his notes and the record of his extensive work-up here, that there is nothing more to be done from the standpoint of work-up. His neurologist has already stated that his office will be getting in touch with the patient and the patient has already had MRI and CT scan here. Furthermore, the patient's symptoms are fairly minor and well I think he is probably having a muscle spasm, there is nothing else to indicate an emergent condition. Lastly, the patient took 1 dose of gabapentin less than an hour before calling EMS and 1 dose of gabapentin less than 30 minutes before calling EMS. As such, I am reluctant to give him much else on top of those medications. I have stated to him that I will give him a single dose of Dilaudid but other than that, we are not going to keep him in the ED again for an extensive period of time. He needs to see his neurologist and come up with a better plan for his spasms and pain control. I have also discussed with him that in the future he should give it a bit more time before calling EMS if he has already taken his medication. The patient was found to be resting comfortably in his room after receiving the Dilaudid, and told the nurse he was feeling much better. However, as soon as it was mentioned that it was time for discharge, the patient suddenly began stiffening his left leg and stating that it hurt and that he could not use it. The patient was advised that he has had extensive work-up in the emergency department and his neurologist is recommending the current regimen that the patient is on. We will not be doing anything further in the ED as the patient is already stated he was feeling better, prior to realizing that he was going to be discharged. The patient was wheeled to his rides vehicle by nursing staff and noted to transfer and get into the vehicle without difficulty. Departure - Departure Disposition: 01 Home, Self Care Clinical Impression: Pain of lower extremity Qualifiers: Laterality: left Qualified Code(s): M79.605 - Pain in left leg Condition: Stable Instructions: ED Muscle Pain Leg Cramps Comments: You have been given a dose of pain medication tonight via shot. You did not wait an appropriate amount of time after taking your gabapentin to see if this would kick in, and as such, we cannot give you more medication, as it may end up stacking up and being too much altogether as your gabapentin kicks in. You have had extensive testing in the emergency department and your neurologist has already come up with a plan, both in terms of you taking the gabapentin and in terms of you following up. There is not an emergent condition tonight and as such, there is no indication for an extended stay in the emergency department again. Please call your neurologist office in the morning to follow-up on the plan for an appointment and evaluation. In the meantime, please take your medications as directed to help with your Parkinson's symptoms. Forms: PCP List Discharge Date/Time: 08/25/23 23:25
[2023-08-25 23:44] VITALS: BP 121/78; O2SAT 93
== END 2023-08-25 23:25 | disposition home or self-care (01) ==
LOC: EDUNIT# → ED 22:11
DX: M79.605 Pain in left leg (principal); G20.A1 Parkinson's disease without dyskinesia, without mention of fluctuations; I10 Essential (primary) hypertension; M51.26 Other intervertebral disc displacement, lumbar region
CPT/HCPCS: 36415; 72157; 72158; 74177; 80053; 82550; 83690; 83735; 85025; 96372; 96374; 96375; 96376; 99283; 99284; 99285; A9270; A9575; J1170; J2060; Q9967

== ENCOUNTER 2023-08-27 02:23 | Outpatient (CLI) | payer MEDICARE, OTHER | END 2023-08-27 02:24 | disposition EMS.NT | LOC: EMS 02:23 | DX: R06.02 Shortness of breath (principal); G20.C Parkinsonism, unspecified ==

== ENCOUNTER 2023-08-30 07:14 | Emergency (ER) | payer MEDICARE, OTHER ==
[2023-08-30] MEDS ORDERED: HYDROmorphone 1 MG/ML CARPUJECT IVP STA ×2 (08:08→09:42)
[2023-08-30] MEDS ORDERED: ONDANSETRON 4 MG/2 ML VIAL IVP STA ×2 (08:08→08:28)
--- NOTE | 2023-08-30 08:51 | ED Physician Documentation ---
History of Present Illness - Stated complaint Stated Complaint: ABD PX - Chief complaint Chief Complaint: General - History obtained from History obtained from: Patient, EMS - Additonal information Additional information: The patient returns to the emergency department chief complaint of left groin pain that is radiating down his left leg and also in to his right groin and right leg. The patient has been seen here multiple times for the same and has a history of Parkinson's disease. He had extensive work-up a couple of weeks ago for the same issue including CTs and MRI, all of which were unremarkable. He is followed by neurology for his Parkinson's and they have been titrating his med Doses up to try to get control of the patient's ongoing groin pain. The patient states they put his gabapentin up last week but it does not seem to be helping that much. The medics do report that the patient was driving as recently as yesterday and called them from his car because his groin pain and kicked in. They state that at that time the patient declined to be transported and decided to just take at home to [facility], where he lives in assisted living. However, the patient was uncomfortable all night and called 911 again to be transported here. He denies any new symptoms and states that his symptoms today are the same as they have been on previous occasions. No injuries. He states that it feels like a "hot poker" shooting into both of his groin/thigh regions. PD PAST MEDICAL HISTORY - Past Medical History Cardiovascular: High cholesterol, Hypertension, Murmur Respiratory: Shortness of breath Neuro: Parkinson's Endocrine/Autoimmune: None GI: None : Other HEENT: Chronic hearing loss, Chronic vision loss Psych: None Musculoskeletal: Osteoarthritis, Chronic back pain, Other Derm: None - Past Surgical History Past Surgical History: Yes General: Colonoscopy Ortho: Shoulder arthroplasty, Spine surgery, Other Cardiovascular: Other HEENT: Tonsil/Adenoidectomy - Present Medications Home Medications: Ambulatory Orders Medication Instructions Recorded Confirmed Baclofen [Lioresal] 10 mg PO TID 01/22/21 02/22/21 Escitalopram [Lexapro] 10 mg PO DAILY 01/22/21 02/22/21 Pravastatin Sodium [Pravachol] 20 mg PO DAILY 01/22/21 02/22/21 Aspirin EC [Ecotrin] 81 mg PO DAILY 02/07/21 02/22/21 Carbidopa/Levodopa 25/100 [Sinemet 2 tab PO .7XD 02/07/21 01/06/23 25 mg/100 mg] Cyclobenzaprine HCl 5 - 10 mg PO Q8HR PRN 02/07/21 02/22/21 Lisinopril [Zestril] 20 mg PO DAILY 02/07/21 02/22/21 Metoprolol Tartrate [Lopressor] 25 mg PO BID 02/07/21 02/22/21 Pramipexole Di-HCl [Mirapex] 0.75 mg PO .7XD 02/07/21 01/06/23 Docusate Sodium [Dulcolax Stool 100 mg PO PRN PRN 02/11/21 02/22/21 Softener] Ferrous Sulfate 325 mg PO DAILY 02/11/21 02/22/21 Mv-Min/Folic/K1/Lycopen/Lutein 1 tab PO DAILY 02/11/21 01/06/23 [Centrum Silver Men Tablet] HYDROcod/ACETAM 5/325 [[place] 5/325] 1 - 2 tablet PO Q6H PRN #10 tablet 10/14/22 Baclofen [Lioresal] 10 mg PO TID #30 tablet 01/06/23 methocarbamoL [Methocarbamol] 1,000 mg PO TID 01/06/23 01/06/23 Baclofen [Lioresal] 10 mg PO TID #90 tablet 06/23/23 HYDROcod/ACETAM 5/325 [[place] 5/325] 1 - 2 tab PO Q6H PRN #15 tablet 08/16/23 Pramipexole [Mirapex] 0.25 mg PO TID #30 tablet 08/16/23 Gabapentin [Neurontin] 300 mg PO HS #20 cap 08/25/23 Alprazolam [Xanax] 0.25 mg PO Q6H PRN #30 tablet 08/30/23 - Allergies Allergies/Adverse Reactions: Allergies Allergy/AdvReac Type Severity Reaction Status Date / Time Sulfa (Sulfonamide Allergy Rash Verified 08/25/23 22:26 Antibiotics) - Social History Does the pt smoke?: No Smoking Status: Never smoker Does the pt drink ETOH?: No Does the pt have substance abuse?: Yes - Immunizations Immunizations are current?: Yes - POLST Patient has POLST: No PD ED PE NORMAL - Vitals Vital signs reviewed: Yes - General General: Well developed/nourished, Other (Alert, visibly uncomfortable, writhing in bed and crying out.) - HEENT HEENT: Atraumatic, PERRL, EOMI, Moist mucous membranes - Neck Neck: Supple, no meningeal sign - Cardiac Cardiac: RRR, No murmur, Strong equal pulses - Respiratory Respiratory: No respiratory distress, Clear bilaterally - Abdomen Abdomen: Soft, Non tender, Non distended - Derm Derm: Normal color, Warm and dry, No rash - Extremities Extremities: No deformity, No edema, Other (Tenderness palpation over bilateral proximal anterior thighs. No mass. No evidence of trauma. No hernia in either inguinal region. Distal pulses intact bilateral lower extremities.) - Neuro Neuro: Other ( grossly intact.) - Psych Psych: Normal mood, Normal affect Results - Vitals Vitals: Oxygen O2 Source Room air PD Medical Decision Making - ED course Complexity details: reviewed old records, considered differential, d/w patient ED course: The patient was treated symptomatically in the emergency department. He had very recently had extensive work-up including CT and MRI, as well as consultations with neurology. Despite an extended stay in the ED, neurologist did not feel there was any role for inpatient management/transfer and the patient was ultimately discharged home. He has previously, on that occasion and others, had difficulty finding what he feels is adequate symptomatic relief, despite multiple doses of medications. I discussed with him that we will do our best to get him comfortable, but that it is very likely that he will still have some discomfort when we deem him ready for discharge. The patient expressed understanding. I have also discussed with him that we can try adding a narcotic pain medication, at least for at night, to help get better pain control, since he does not have this at home. The patient was treated initially with Zofran and Dilaudid. The patient appeared to be doing better, but as soon as he was asked about his pain level, he began to appear to have a panic attack and began hyperventilating, stating that his leg was too painful to even think about going home, Despite the fact that we had not yet mention discharge. The patient was given another milligram of Dilaudid as well as a dose of Ativan to help with his anxiety. I spoke with his Daughter Yanni, who lives in [place], by phone. We discussed at length his medications, Yanni's concerns, and other issues with her dad, including his anxiety. Yanni is concerned that some of the medications that he is on, especially with the recent addition of other medications and increases in doses, are causing hallucinatory side effects for her father. I discussed with her that this certainly has the potential to be an issue, and it will be up to his outpatient physicians to try to strike a balance between symptom control in terms of his pain, and side effect control. At this point in time, I have assured Yanni that we will do our best to make her dad as comfortable as possible, but that the plan will be to discharge and that the patient may not be completely pain-free. His daughter understands this and we have had a very cordial and reasonable conversation. I did go back and reevaluate the patient, who was heavily drowsy. I did arouse him and asked how he was doing, and the patient stated "pretty good". I felt the patient was stable for discharge home. He did call for a ride and was taken back to his assisted living facility. We have discussed the usual indications for return. Departure - Departure Disposition: 01 Home, Self Care Clinical Impression: Muscle spasm of both lower legs Condition: Stable Instructions: Parkinson Disease, ED Panic Attack Prescriptions: Alprazolam [Xanax] 0.25 mg PO Q6H PRN #30 tablet PRN Reason: Anxiety Comments: You have been treated in the emergency department for ongoing nerve pain and muscle spasms in your groin and bilateral legs, as well as for anxiety/panic attack. I reviewed your medication list, including most recent updates from your primary care provider and neurologist, and have also discussed your case at length with your daughter Yanni. It is important that you continue to work with neurology and your primary on better pain control and as your daughter has expressed, getting established with a pain management program would be ideal, given that it does not seem that you are getting very good control of your nerve pain and muscle spasm as an outpatient. Unfortunately, given that all of your other tests have come back looking very good, there is no role for inpatient management at this point in time. I have discussed with Yanni that although we are always happy to try to get your symptoms under better control, it may be worth considering at some point a transfer to an assisted living facility that is closer to larger hospitals [facility] that have the array of specialists that you need for your ongoing care. For now, I have prescribed a medication to help with acute anxiety attacks, which I think is contributing to your concerns about going home, even when we have gotten your pain under decent control. Please call make the next available appointment with Brianatrever Davidson to talk about getting on a chronic pain program. Please continue the medications for now as your primary doctor and neurologist have prescribed. A prescription for the anxiety rescue medicine has been electronically transmitted to the [facility] in [place]. Forms: PCP List Discharge Date/Time: 08/30/23 14:28
[2023-08-30] MEDS ORDERED: LORazepam 2 MG/ML VIAL IVP STA (09:42)
[2023-08-30 12:59] VITALS: O2SAT 97
[2023-08-30 14:29] VITALS: BP 112/67
== END 2023-08-30 14:28 | disposition home or self-care (01) ==
LOC: EDUNIT# → ED 07:14
DX: M62.838 Other muscle spasm (principal); I10 Essential (primary) hypertension; E78.00 Pure hypercholesterolemia, unspecified; G20.A1 Parkinson's disease without dyskinesia, without mention of fluctuations; Z79.899 Other long term (current) drug therapy
CPT/HCPCS: 36415; 96374; 96376; 99283; 99284; J1170; J2060; 80053; 83690; 85025

== ENCOUNTER 2024-04-19 21:34 | Outpatient (CLI) | payer MEDICARE, OTHER | END 2024-04-19 23:59 | disposition EMS.NT | LOC: EMS 21:34 | DX: Z03.89 Encounter for observation for other suspected diseases and conditions ruled out (principal) ==

== ENCOUNTER 2024-06-25 08:00 | Outpatient (CLI) | payer MEDICARE, OTHER | END 2024-06-25 23:59 | disposition home or self-care (01) | LOC: LAB.N 08:00 | PROVIDERS: ATTEND Registered Nurse | DX: S81.802A Unspecified open wound, left lower leg, initial encounter (principal) | CPT/HCPCS: 87070; 87205 ==